=== PATIENT | male | born 1955 | race Caucasian/White ===

== ENCOUNTER → 2020-11-27 02:26 | Outpatient (CLI) | payer OTHER, SELFPAY ==
[2020-11-27 17:20] LABS: SARS-CoV-2 RNA PCR Negative
== END ==
PROVIDERS: Visit Provider Internal Medicine Gastroenterology
DX: Z01.812 Encounter for preprocedural laboratory examination (principal)
CPT/HCPCS: C9803; U0003; U0005

== ENCOUNTER 2020-11-30 00:39 | Day surgery (SDC) | payer OTHER, SELFPAY ==
[2020-11-16 09:35] VITALS: BMI 33.5
[2020-11-30 10:00] VITALS: BP 139/70; PULSE 88; RESP 20; TEMP 36.4; O2SAT 99; BMI 33.5
[2020-11-30 10:08] LABS: Glucose Point of Care 279 mg/dl (65-105)
[2020-11-30] MEDS: LACTATED RINGERS 1,000 ML 150 ML IV CONT (10:13)
--- NOTE | 2020-11-30 10:17 | WPDANESEPPF ---
Anes - Initial Pre Proc Eval Procedure: Operation Date: 11/30/20 10:30 Proposed Procedures p Screening Colonoscopy - Artie Shepard MD Date/Time: 11/30/20 10:17 Surgeon: Artie Shepard MD Pre Op Diagnosis: hx of colon polyps, neoplasm screening Patient Data Age: 65 Gender: M Height: 1.8 m Weight: 109.1 kg Last Vital Signs Temp 36.4 C 11/30/20 10:00 Pulse 88 11/30/20 10:00 Resp 20 11/30/20 10:00 BP 139/70 11/30/20 10:00 Pulse Ox 99 11/30/20 10:00 Allergies Allergy/AdvReac Type Severity Reaction Status Date / Time No Known Allergies Allergy Unverified 11/16/20 09:41 Home Medications Medication Instructions Recorded Confirmed Type sodium,potassium,mag sulfates 17.5 See Rx Instructions PO .COMPLEX 10/15/20 Rx gram-3.13 gram-1.6 gram oral soln #354 ml atorvastatin 20 mg PO DAILY 11/16/20 11/16/20 History diclofenac sodium 75 mg PO BID 11/16/20 11/16/20 History losartan-hydrochlorothiazide 1 tablet PO DAILY 11/16/20 11/16/20 History sitagliptin-metformin [Janumet] 1 tablet PO BID 11/16/20 11/16/20 History Laboratory Tests 11/30/20 10:06 POC Capillary Glucose 279 mg/dl H mg/dl (65-105) Patient hx anesthesia problems: none Family hx anesthesia problems: none PMFSH Past Medical History Medical History (Updated 11/30/20 @ 10:18 by Salty Lopez MD) Diabetes HTN (hypertension) Hyperlipidemia Surgical History Surgical History (Updated 11/30/20 @ 10:20 by Salty Lopez MD) H/O colonoscopy Social History Social History Smoking status: Never smoker Tobacco type: cigars Alcohol intake: current Drinks per week: 8 Alcohol use details: BEERS Substance use: never Substance use type: does not use Living arrangements: with family Spiritual care concerns: No Anes - Eval Final PreProcedure Day of Procedure 11/30/20 10:17 Patient weight: obese Heart: regular rate and rhythm Lungs: clear to auscultation Airway: Mallampati scale class II Neurological: alert and oriented Last oral intake: >/= 8 hours ASA classification: III Emergent: no Anesthetic plan: proceed Anesthesia type and monitoring: general GIVS and standard monitoring Informed Consent: The patient's anesthetic plan and its attendant risks and benefits were discussed with the patient/family/POA. Questions were solicited and answers provided to the satisfaction of the patient/family/POA.
--- NOTE | 2020-11-30 10:40 | PM.HPGS ---
History of Present Illness History of Present Illness Consent: Risks, benefits, and alternatives have been discussed and questions answered. Patient agrees to proceed with procedure. Chief complaint: hx of colon polyps, neoplasm screening Narrative: Anshu Mohamud is a 65 year old male with colon polyp ~ 6 years ago. Review of Systems Constitutional: Constitutional: Denies headache(s) and Denies weakness Eyes: Eyes: Denies blurry vision ENT: Reports Normal hearing present, Denies headache(s) and Denies neck pain Cardiovascular: Cardiovascular: Denies chest pain and Denies dyspnea Respiratory: Respiratory: Denies dyspnea Gastrointestinal: Gastrointestinal: Reports no additional gastrointestinal complaints Genitourinary: Genitourinary: Denies dysuria Musculoskeletal: Musculoskeletal: Denies neck pain Integumentary/Breasts: Skin/Breast: Denies dry skin Neurologic: Reports Normal hearing present, Denies headache(s) and Denies weakness Psychiatric: Psychiatric: Denies anxiety Endocrine: Endocrine: Denies change in body appearance Hematologic/Lymphatic: Hematologic/Lymphatic: Denies easy bleeding Allergic/Immunologic: Allergic/Immunologic: Denies urticaria PMFSH Past Medical History Medical History (Updated 11/30/20 @ 10:41 by Artie Shepard MD) Colon polyp Diabetes HTN (hypertension) Hyperlipidemia Surgical History Surgical History (Updated 11/30/20 @ 10:20 by Salty Lopez MD) H/O colonoscopy Social History Social History Smoking status: Never smoker Tobacco type: cigars Alcohol intake: current Drinks per week: 8 Alcohol use details: BEERS Substance use: never Substance use type: does not use Living arrangements: with family Spiritual care concerns: No Meds Home Medications and Allergies Home Medications Medication Instructions Recorded Confirmed Type sodium,potassium,mag sulfates 17.5 See Rx Instructions PO .COMPLEX 10/15/20 Rx gram-3.13 gram-1.6 gram oral soln #354 ml atorvastatin 20 mg PO DAILY 11/16/20 11/16/20 History diclofenac sodium 75 mg PO BID 11/16/20 11/16/20 History losartan-hydrochlorothiazide 1 tablet PO DAILY 11/16/20 11/16/20 History sitagliptin-metformin [Janumet] 1 tablet PO BID 11/16/20 11/16/20 History Allergies Allergy/AdvReac Type Severity Reaction Status Date / Time No Known Allergies Allergy Unverified 11/16/20 09:41 Vital Signs Vital Signs - 24 hr 11/30/20 10:00 Temperature 97.6 F Pulse Rate 88 Respiratory Rate 20 Blood Pressure 139/70 Pulse Oximetry 99 Exam Const: General: comfortable and no acute distress HENMT: General nose exam: Normal nares present Eyes: General: appearance normal, both eyes and all related structures Neck: Neck: no JVD Resp: Auscultation: clear to auscultation bilaterally Cardio: Rate: regular rate Rhythm: regular rhythm GI: Inspection: non-distended GI Palp: Yes Soft to palpation Skin: General skin exam: normal color Neuro: General: gait normal Speech: normal speech Extrem: General: normal to inspection Psych: Mental Status: mental status grossly normal Assessment and Plan Assessment and plan (1) Colon polyp: Code(s): K63.5 - Polyp of colon Status: Acute Assessment and Plan: colonoscopy
[2020-11-30 11:06] VITALS: BP 122/93; PULSE 80; RESP 26; O2SAT 99
[2020-11-30 11:16] VITALS: BP 142/74; PULSE 83; RESP 17; O2SAT 100
[2020-11-30 11:26] VITALS: BP 143/80; PULSE 86; RESP 19; O2SAT 99
== END 2020-11-30 11:34 | disposition home or self-care (01) ==
PROVIDERS: PCP Family Medicine Sports Medicine; Visit Provider Internal Medicine Gastroenterology
PROC: 0DJD8ZZ Inspection of Lower Intestinal Tract, Via Natural or Artificial Opening Endoscopic (ICD-10-PCS; CPT 45378; principal; 2020-11-30 10:30)
DX: Z12.11 Encounter for screening for malignant neoplasm of colon (principal); C19 Malignant neoplasm of rectosigmoid junction; D12.3 Benign neoplasm of transverse colon; K57.30 Diverticulosis of large intestine without perforation or abscess without bleeding; K64.8 Other hemorrhoids; E11.9 Type 2 diabetes mellitus without complications; I10 Essential (primary) hypertension; E78.5 Hyperlipidemia, unspecified; E66.9 Obesity, unspecified; Z68.33 Body mass index [BMI] 33.0-33.9, adult
CPT/HCPCS: 45380; 45381; 45385; 82948; 88305; C9803; J2704; J7120; U0003; U0005

== ENCOUNTER 2020-12-04 14:22 | Outpatient (CLI) | payer OTHER, SELFPAY ==
--- NOTE | ~2020-12-04 | CT_ITS ---
EXAMINATION: CT abdomen pelvis w con DATE: 12/04/2020 15:51 INDICATION: Rectosigmoid mass TECHNIQUE: Computed tomography (CT) of the abdomen and pelvis was performed with 100 mL Omnipaque-350 intravenous contrast. Automated exposure control and iterative reconstruction technique were employe d. The dose-length product was 1227.66 mGy-cm. COMPARISON: None FINDINGS: Calcified right middle lobe nodule along with multiple small splenic calcifications consistent with o ld granulomatous disease. Heart size is normal. Aortic valve calcification. No pericardial or pleural effusion. Liver, gallbladder, pancreas and bilateral adrenal glands are normal. 6.8 x 6.1 cm mixed s olid and cystic mass at the upper pole of the left kidney suspicious for renal cell carcinoma. There appears to be extension of the mass into a dilated draining left renal vein with small filling defect at its confluence with the left renal vein. 2.5 cm para pelvic cyst at the interpolar region of the left kidney. There is a heterotopic ossification associated with a region of cortical scarring at the upper pole of the left kidney. 2.2 cm exophytic cyst at the lower pole of the right kidney. There is mild colonic diverticulosis with a sigmoid predominance. There is no adjacent inflammatory change t o suggest diverticulitis. 1.8 cm macroscopic fat attenuation subserosal lipoma at the tip of the cecu m. No evident rectosigmoid mass appreciated. Small bowel and appendix are normal. Bladder is normal. No free intraperitoneal gas or fluid. No pathologically enlarged abdominal or pelvic lymphadenopathy. Moderate to severe thoracolumbar spondylosis. There are bridging osteophytes at multiple levels in t he lower thoracic spine, consistent with diffuse idiopathic skeletal hyperostosis (DISH). No suspicio us lytic or blastic bone lesions. IMPRESSION: 1. 6.8 x 6.1 cm mixed solid and cystic mass at the upper pole of the left kidney with apparent extens ion into a left renal vein which is concerning for renal cell carcinoma. 2. No evident rectosigmoid mass or metastatic disease. Reviewed, dictated and finalized at location A. IMPRESSION: 1. 6.8 x 6.1 cm mixed solid and cystic mass at the upper pole of the left kidne y with apparent extension into a left renal vein which is concerning for renal cell carcinoma. 2. No evident rectosigmoid mass or metastatic disease.
[2020-12-04 15:10] LABS: Hematocrit 42.3 % (42.0-52.0); Hemoglobin 14.2 g/dL (14.0-18.0); Mean Corpuscular HGB Conc 33.6 g/dl (32-36); Mean Corpuscular Hemoglobin 30.9 pg (26-34); Mean Platelet Volume 9.6 fl (7.4-10.4); Platelet Count Result 312 k/mm3 (150-375); Red Cell Distribution Width 12.4 % (11.5-14.5); White Blood Count 11.6 K/mm3 (4.5-10.0)
[2020-12-04 15:38] LABS: Estimated Glomerular Filt Rate 36
[2020-12-04 17:03] LABS: Alanine Aminotransferase 23 U/L (4-50); Albumin Level 4.8 g/dL (3.5-5.1); Alkaline Phosphatase 93 U/L (38-126); Anion Gap 10 mmol/L (8-16); Aspartate Amino Transferase 23 U/L (17-59); Bilirubin,Total 0.6 mg/dL (0.2-1.3); Blood Urea Nitrogen 19 mg/dL (9-20); Calcium 10.7 mg/dL (8.4-10.2); Carbon Dioxide 26 mmol/L (22-30); Chloride 99 mmol/L (98-107); Estimated Glomerular Filt Rate 40; Glucose 161 mg/dL (65-110); Sodium 135 mmol/L (137-145)
[2020-12-04 17:29] LABS: Carcinoembryonic Antigen 3.4 ng/mL (0.0-3.0)
== END 2020-12-04 14:23 | disposition home or self-care (01) ==
PROVIDERS: PCP Family Medicine Sports Medicine; Referring Provider Family Medicine Sports Medicine; Visit Provider Internal Medicine Gastroenterology
DX: K63.89 Other specified diseases of intestine (principal)
CPT/HCPCS: 36415; 74177; 80053; 82378; 85027; Q9967

== ENCOUNTER 2020-12-14 06:39 | Outpatient (CLI) | payer OTHER, SELFPAY ==
--- NOTE | ~2020-12-14 | MR_ITS ---
EXAMINATION: MR pelvis wo/w con DATE: 12/14/2020 08:10 INDICATION: Rectosigmoid cancer TECHNIQUE: Magnetic resonance imaging (MRI) of the pelvis was performed without and with 20 mL Multih ance intravenous contrast. Full-field sequences of the pelvis included axial and coronal T2-weighted SS FSE, coronal 2D FIESTA, axial T1-weighted FSPGR, axial dual-echo T1-weighted FSPGR and axial T1 we ighted LAVA. Small field of view sequences included axial, sagittal and coronal T2-weighted FSE cent ered on the uterus and adnexa. Postcontrast sequences included a coronal T1-weighted LAVA as well as a time course axial T1-weighted LAVA with full-field of view of the pelvis. COMPARISON: CT dated 12/04/2020 FINDINGS: There is a region of eccentric thickening of the submucosa along the anterior rectosigmoid junction c entered slightly to the left of midline. 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 There is no evident thickening or interruption of the low sig nal intensity muscularis propria to suggest macroscopic invasion although per pathology report there was suggestion of some microscopic smooth muscle invasion. The serosal surface appears smooth with no evident invasion of the mesorectum which is also without evident suspicious lymphadenopathy. No path ologically enlarged pelvic or inguinal lymphadenopathy. The visualized portions of the more proximal bowel are unremarkable including a normal appendix. Ther e is mild wall thickening at the dome of the bladder measuring up to 7 mm in thickness which appears relatively uniform with mild trabeculation of the bladder mucosa which could be related to chronic ou tlet obstruction or neurogenic bladder although the prostate remains within normal limits measuring 3 .5 x 3.0 x 3.6 cm. There is mild to moderate lower lumbar spondylosis. Normal bone marrow signal thr oughout with no abnormally enhancing bone lesions. IMPRESSION: 1. Small region of wall thickening at the left anterior rectosigmoid junction with thickening of the submucosal layer which could represent residual malignancy and/or inflammation related to reported bi opsied demonstrating colorectal adenocarcinoma. No evident macroscopic involvement of the muscularis propria, trans serosal invasion of the mesorectum or metastatic pelvic lymphadenopathy. 2. Relatively diffuse wall thickening at the dome of the bladder with mucosal trabeculation which sug gests sequela of chronic outlet obstruction or neurogenic bladder although the prostate remains withi n normal limits measuring 3.5 x 3.0 x 3.6 cm. Reviewed, dictated and finalized at location A. IMPRESSION: 1. Small region of wall thickening at the left anterior rectosigmoid junction w ith thickening of the submucosal layer which could represent residual malignanc y and/or inflammation related to reported biopsied demonstrating colorectal caroline nocarcinoma. No evident macroscopic involvement of the muscularis propria, espino s serosal invasion of the mesorectum or metastatic pelvic lymphadenopathy. 2. Relatively diffuse wall thickening at the dome of the bladder with mucosal t rabeculation which suggests sequela of chronic outlet obstruction or neurogenic bladder although the prostate remains within normal limits measuring 3.5 x 3.0 x 3.6 cm.
[2020-12-14 07:20] LABS: Estimated Glomerular Filt Rate 47
== END 2020-12-14 06:40 | disposition home or self-care (01) ==
PROVIDERS: PCP Family Medicine Sports Medicine; Visit Provider Internal Medicine Hematology & Oncology
DX: C19 Malignant neoplasm of rectosigmoid junction (principal); R93.41 Abnormal radiologic findings on diagnostic imaging of renal pelvis, ureter, or bladder
CPT/HCPCS: 72197; A9577

== ENCOUNTER 2020-12-24 08:13 | Outpatient (CLI) | payer OTHER, SELFPAY ==
--- NOTE | ~2020-12-24 | CT_ITS ---
EXAMINATION: CT diagnostic chest wo con DATE: 12/24/2020 09:54 INDICATION: Left renal mass TECHNIQUE: Computed tomography (CT) of the chest was performed without intravenous contrast. The dose -length product (DLP) was 555.93 mGy-cm. Automated exposure control and iterative reconstruction tech nique were employed. COMPARISON: None FINDINGS: The lungs are free of acute opacities. There is no pleural effusion or pneumothorax. Calcif ied pulmonary nodules and calcified mediastinal lymph nodes are consistent with old granulomatous dis ease. No pathologically enlarged thoracic lymph nodes are identified. The heart size is normal. Punct ate calcifications in an otherwise normal spleen likely represent healed granulomatous disease. There are bridging osteophytes at multiple levels in the spine, consistent with diffuse idiopathic skeleta l hyperostosis (DISH). There is a partially imaged left kidney mass described in detail on MRI examin ation from today. IMPRESSION: 1. No acute cardiopulmonary abnormality or evidence of thoracic metastatic disease. Reviewed, dictated and finalized at location A. IMPRESSION: 1. No acute cardiopulmonary abnormality or evidence of thoracic metastatic dise ase.
--- NOTE | ~2020-12-24 | MR_ITS ---
EXAMINATION: MR abdomen wo/w con INDICATION: Renal mass TECHNIQUE: Coronal SSFSE ARC, WATER:coronal LAVA-FLEX, Coronal 2D FIESTA FatSat, Axial SSFSE BH ARC, Axial 3D DualEcho BH, Axial SSFSE-IR, Axial DWI b=500, Axial 2D FIESTA FatSat, pre and dynamic postco ntrast Axial LAVA ARC, postcontrast Coronal In and Opposed phase LAVA FLEX COMPARISON: CT, 12/04/2020 CONTRAST: Multihance, 20 cc FINDINGS: The liver, spleen, pancreas, gallbladder, and adrenal glands are normal. There is cortical scarring in the right mid kidney demonstrated to be associated with calcification on the comparison C T. Cysts of the right kidney lower pole measure up to 2.4 cm. There are no pathologically enlarged ab dominal lymph nodes. No dilated loops of bowel are evident. There is a heterogeneous 7.1 x 6.5 x 5.5 cm mass involving the posterior aspect of the left kidney up per pole. The left renal vein bifurcates with an anterior division that drains the lower pole and the anterior aspect of the upper pole and a posterior division that drains the posterior aspect of the u pper pole. This posterior division is expanded and contains tumor thrombus. The tumor thrombus extend s into the main renal vein just proximal to the bifurcation. The tumor thrombus does not cross the mi dline and does not involve the inferior vena cava. IMPRESSION: 1. Right kidney mass consistent with renal cell carcinoma with tumor thrombus in the left renal vein as detailed above. Reviewed, dictated and finalized at location A. IMPRESSION: 1. Right kidney mass consistent with renal cell carcinoma with tumor thrombus i n the left renal vein as detailed above.
[2020-12-24 08:52] LABS: Estimated Glomerular Filt Rate 40
== END 2020-12-24 08:14 | disposition home or self-care (01) ==
PROVIDERS: PCP Family Medicine Sports Medicine; Visit Provider Urology
DX: N28.89 Other specified disorders of kidney and ureter (principal)
CPT/HCPCS: 71250; 74183; A9577

== ENCOUNTER 2021-03-29 07:56 | Outpatient (CLI) | payer OTHER, SELFPAY ==
[2021-03-29 09:28] LABS: Anion Gap 8 mmol/L (8-16); Blood Urea Nitrogen 36 mg/dL (9-20); Calcium 9.6 mg/dL (8.4-10.2); Carbon Dioxide 23 mmol/L (22-30); Chloride 99 mmol/L (98-107); Estimated Glomerular Filt Rate 22; Glucose 128 mg/dL (65-110); Potassium 5.1 mmol/L (3.4-5.0); Sodium 130 mmol/L (137-145)
== END 2021-03-29 07:57 | disposition home or self-care (01) ==
LOC: ANHSURGERY 08:03
PROVIDERS: Anesthesiology; PCP Family Medicine Sports Medicine; Visit Provider Surgery
DX: Z01.818 Encounter for other preprocedural examination (principal); E11.9 Type 2 diabetes mellitus without complications
CPT/HCPCS: 36415; 80048

== ENCOUNTER → 2021-04-03 00:05 | Outpatient (CLI) | payer OTHER, SELFPAY ==
[2021-04-03 17:30] LABS: SARS-CoV-2 RNA PCR Negative
== END ==
PROVIDERS: PCP Family Medicine Sports Medicine; Visit Provider Surgery
DX: Z01.812 Encounter for preprocedural laboratory examination (principal); Z20.822 Contact with and (suspected) exposure to COVID-19
CPT/HCPCS: C9803; U0003; U0005

== ENCOUNTER 2021-04-07 16:54 | Inpatient (IN) | payer MEDICARE, OTHER, SELFPAY ==
[2021-03-29 08:09] VITALS: BMI 32.6
--- NOTE | 2021-03-29 08:39 | PC.NURSE ---
Report to the Outpatient Waiting Room, entrance under the green pavilion located off [facility], at time __0800 on date __04/07/21 . OR Time: _1000 . - You and your visitor will be asked a series of questions to screen for COVID 19 for your protection. - A mask is required within the hospital. - Only one visitor is allowed at this time. Patient visitors will be guided where to wait when not with patient. Preoperative COVID Testing Requirements: No COVID Test needed if: (proof is required; if not received patient will have Rapid Test prior to entry) COVID TESTING 04/03/21 @0920 - Patient has received COVID Vaccine at least 14 days prior to procedure date or - Patient has positive COVID test result within last 90 days of surgery date. COVID Test needed if above criteria is not met If not COVID vaccinated a COVID test must be conducted within 72 hours of surgery and patient is asked to isolate self from time of testing until procedure. You will go to the [employer] [facility] for your COVID testing. The [employer] [facility] site is located at the corner of [address] [facility]. You will only be called if COVID results are positive and your surgeon may reschedule your elective surgery date. Patients may have clear liquids (water, carbonated beverages, clear teas, apple juice) until 3 hours prior to surgery with a maximum of 20 ounces. - No food from midnight until time of surgery - Infants may have breast milk until 4 hours before surgery, infant formula 6 hours prior to surgery. - Children will be allowed to drink immediately following surgery. If applicable, please bring a bottle or sippy cup to assist with drinking. Juice, water, soda, and popsicles are readily available. For infants on formula, please bring formula the day of surgery. Pacifiers are allowed. Take the following medications with a SIP of water the morning of surgery: ___NONE Medications to discontinue per physician NONE Date to take last dose Please no make-up, nail cape verdean, hairspray, perfume, deodorant, or body powder the day of surgery. No jewelry (including any body piercings) or valuables the day of surgery, leave them at home. Please take a shower or bath the night before, or the morning of, surgery with an antibacterial soap. Wear comfortable, loose fitting clothing. Children are encouraged to wear pajamas. - Jewelry must be removed prior to entering the operating room. Rings and piercings that are not removed may be cut off. - The hospital will not accept responsibility for valuables. - Please leave all valuables, including medications, at home the day of surgery. HIBICLENS SHOWER DAY BEFORE SURGERY AND MORNING OF SURGERY If you are going home after surgery, a licensed semi driver must drive you home. - NO public transportation without another adult. - We recommend that an adult stay with you for 24 hours following discharge. - We also recommend that you do not drive, make important decision, drink alcoholic beverages, or take any drugs that were not prescribed by your health care provider for at least 24 hours after your discharge time. For Pediatric surgeries, we recommend two adults accompany the child home (only one inside the building at this time). Follow any additional instructions given to you from your surgeon. verbal instructions given to _PATIENT AND PARISH and asked if any additional questions and then verbalized understanding. Patient advised to call surgeon office or pre surgery nurse liaison [phone] if any additional questions.
[2021-03-29 08:54] VITALS: BP 155/67; PULSE 75; RESP 16; TEMP 37.3; O2SAT 100; BMI 32.6
[2021-04-07] VITALS (12 sets, daily range): BP systolic 125–148; BP diastolic 61–82; PULSE 71–88; RESP 12–18; TEMP 36.1–36.6; O2SAT 97–100
[2021-04-07] MEDS: ACETAMINOPHEN 500 MG TABLET 1000 MG PO ×2 (08:19→18:02)
[2021-04-07] MEDS: KETOROLAC 15 MG/ML VIAL (*BKC) IV PUSH (08:47)
[2021-04-07 08:51] LABS: Glucose Point of Care 177 mg/dl (65-105)
[2021-04-07 09:03] LABS: Sodium 131 mmol/L (137-145)
[2021-04-07] MEDS: LACTATED RINGERS 1,000 ML 30 ML IV CONT ×2 (09:39→15:13)
--- NOTE | 2021-04-07 10:22 | WPDHPUPDATE1 ---
History and Physical Update Update Date/Time: 04/07/21 10:22 History and Physical has been reviewed, including an updated exam of the patient. There are NO changes in the patient's condition. Risks, benefits, and alternatives have been discussed and questions answered. Patient agrees to proceed with procedure.
--- NOTE | 2021-04-07 10:23 | WPDANESEPPF ---
Anes - Initial Pre Proc Eval Procedure: Operation Date: 04/07/21 10:00 Proposed Procedures p Hand Assisted Laparoscopic Low Anterior Resection, Possible Open - Jesse Shaffer DO Date/Time: 04/07/21 10:23 Surgeon: Jesse Shaffer DO Pre Op Diagnosis: rectosigmoid colon cancer Patient Data Age: 65 Gender: M Height: 1.8 m Weight: 102.8 kg Last Vital Signs Temp 97.7 F 04/07/21 08:27 Pulse 81 04/07/21 08:27 Resp 16 04/07/21 08:27 BP 141/71 H 04/07/21 08:27 Pulse Ox 100 04/07/21 08:27 Allergies Allergy/AdvReac Type Severity Reaction Status Date / Time No Known Allergies Allergy Verified 04/07/21 08:17 Home Medications Medication Instructions Recorded Confirmed Type atorvastatin 20 mg PO DAILY 11/16/20 04/07/21 History losartan-hydrochlorothiazide 1 tablet PO DAILY 11/16/20 04/07/21 History sitagliptin-metformin [Janumet] 1 tablet PO BID 11/16/20 04/07/21 History aspirin 81 mg PO HS 12/17/20 04/07/21 History erythromycin 500 mg tablet See Rx Instructions .ROUTE 03/09/21 03/29/21 Rx .COMPLEX #6 tablet neomycin 500 mg tablet See Rx Instructions .ROUTE 03/09/21 03/29/21 Rx .COMPLEX #6 tablet diclofenac-misoprostol 1 tablet PO BID 03/29/21 04/07/21 History Laboratory Tests 04/07/21 04/07/21 08:40 08:43 Sodium 131 mmol/L L mmol/L (137-145) POC Capillary Glucose 177 mg/dl H mg/dl (65-105) Patient hx anesthesia problems: none Family hx anesthesia problems: none Results Review: All pre-operative results and documents have been reviewed as part of the pre-operative evaluation. 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 Informed Consent: The patient's anesthetic plan and its attendant risks and benefits were discussed with the patient/family/POA. Questions were solicited and answers provided to the satisfaction of the patient/family/POA.
[2021-04-07] MEDS: metroNIDAZOLE 500 MG/ISO 100ML 500 MG/100 ML BAG 100 MG IVPB (11:18)
[2021-04-07] MEDS: ceFAZolin 2 GM/D5W 50 ML 2 GM/50 ML BAG IVPB (11:22)
--- NOTE | 2021-04-07 14:11 | SUR.OPER ---
ICG (2.5MG/ML) GIVEN PER ANESTHESIA INTRAOP/SEE ANESTHESIA RECORD FOR IV DOSE AND TIME.
--- NOTE | 2021-04-07 15:12 | W.PM.PROC2 ---
Procedure Note - Detailed Date of Procedure 04/07/21 Pre-op Diagnosis Rectal Cancer Post-op Diagnosis same Procedure Performed Hand assisted laparoscopic low anterior resection with low pelvic anastomosis Surgeon Jesse Sahffer DO Material Stress Tester Marcelo Glez MD Anesthesia general and local (Exparel) Indications This is a 65-year-old man who presented with a recent finding of recto sigmoid cancer on colonoscopy. He has a prior history of colon polyps and underwent colonoscopy 11/30/2020. A mass the rectosigmoid region was identified and biopsied and tattooed. Biopsies confirmed adenocarcinoma. He had further workup including a CT and lab work. CEA level was 3.[address] showed no evidence of metastatic spread, but this did show evidence of a left kidney mass. He then had to undergo left nephrectomy prior to proceeding with colon resection. He was referred to Radiation Oncology for possible neoadjuvant radiation, but MRI showed no deep invasion of the rectal cancer. He then followed up after undergoing nephrectomy and further discussions were made with the patient and decision was made to proceed with hand assisted laparoscopic low anterior resection. Findings Hand assisted laparoscopic low anterior resection was performed. The tattooed region was identified beyond the peritoneal reflection and the more distal rectum. This did not appear to be near the rectosigmoid junction like was 1st reported. A high ligation of the inferior mesenteric artery was performed and further deep pelvic dissection was performed to mobilize the rectum perform a total mesorectal excision. I was able to get just beyond the distal tattoo and identify healthy appearing rectum for the resection and anastomosis. There was about 5 cm of rectum distal to the transection point. A 31 mm EEA stapler was chosen to perform the anastomosis. Leak check was negative for evidence of air bubbles. Indocyanine green was also used to verify adequate perfusion to the colon coming down to the rectum and adequate perfusion to the rectal stump. Description of Procedure Procedure as well as risks benefits and alternatives were explained to the patient. Written consent was obtained and placed in chart prior to procedure. Patient was brought back to surgical suite. He was placed supine on operating table. Time-out was done to confirm patient procedure. He was then intubated by the anesthesia department. He was re-positioned to modified lithotomy position. His abdomen was prepped and draped in sterile fashion using chlorhexidine prep. His rectum was irrigated with Betadine and his perirectal area was prepped and draped in sterile fashion using Betadine prep. A 7 centimeter vertical incision was made inferior to the umbilicus using a 15 blade scalpel. Electrocautery was used for hemostasis and for dissection down through Gissell's fascia. The linea alba was then incised using electrocautery. The peritoneum was bluntly entered using a curved hemostats. A carefully inspected the abdomen through the small hand port incision, and then placed the wound protector at this incision followed by the gel port with a 5 millimeter trocar placed through it. Carbon dioxide insufflation was then used to create a pneumoperitoneum. The abdomen was inspected, and no significant abnormalities were identified. The patient was then placed in steep Trendelenburg position and rotated to the right. Exparel was infiltrated bilaterally along the abdominal wall to perform a transversus abdominis plane block. A 5 millimeter incision was made in the suprapubic region and in the right upper quadrant and 5 millimeter ports were placed under direct visualization. A 12 millimeter incision was made in the right lower quadrant, and a 12 millimeter port was placed under direct visualization. I placed my left hand through the GelPort and carefully inspected the colon. The sigmoid colon was retracted anteriorly to tent up the inferior
[2021-04-07] MEDS: fentaNYL CITRATE INJ (*CRX) 100 MCG/2 ML VIAL 25 MCG IV PUSH ×8 (15:50→16:25)
[2021-04-07 16:14] LABS: Glucose Point of Care 131 mg/dl (65-105)
--- NOTE | 2021-04-07 16:28 | SUR.PHASEI ---
PT AWAKE AND ALERT. TALKATIVE. STATES PAIN MODERATE AND TOLERABLE AT 6/10.
--- NOTE | 2021-04-07 17:05 | ADMGEN ---
This patient, Anshu Mohamud, was admitted to 2 Medical Room 259-01. Patient/family oriented to hospital policies and general routines including ID bracelet, bed and alarms, visiting hours, pain management, procedures, bathroom and other care routines, personal items, smoking policy, room service/diet, and visiting hours. Information on how to activate the Rapid Response Team has been discussed. Patient/Family are encouraged to report perceived risks to care and to ask questions if they do not understand what they are told or what they should do.
[2021-04-07] MEDS: MORPHINE SULFATE (*CRX) 4 MG/ML INJ IV PUSH (18:00)
[2021-04-07] MEDS: LACTATED RINGERS 1,000 ML 100 ML IV CONT (18:02)
[2021-04-07 18:11] LABS: Glucose Point of Care 133 mg/dl (65-105)
[2021-04-07] MEDS: ASPIRIN 81 MG CHEWABLE TABLET PO (20:36)
[2021-04-07] MEDS: MORPHINE SULFATE (*CRX) 2 MG/ML INJ IV PUSH (20:39)
[2021-04-07 22:12] LABS: Glucose Point of Care 207 mg/dl (65-105)
[2021-04-08] VITALS (7 sets, daily range): BP systolic 141–157; BP diastolic 76–81; PULSE 76–98; RESP 16–20; TEMP 36.4–37.1; O2SAT 97–100
[2021-04-08] MEDS: ACETAMINOPHEN 500 MG TABLET 1000 MG PO ×4 (00:03→17:06)
[2021-04-08] MEDS: LIDOCAINE HCL 2% GEL UROJET 10 ML PKG MUCOUS MEM (01:37)
[2021-04-08] MEDS: LACTATED RINGERS 1,000 ML 100 ML IV CONT (04:02)
[2021-04-08 05:38] LABS: Basophils Absolute Auto 0.1 K/mm3 (0.0-0.1); Basophils Percent Auto 0.9 % (0.2-1.2); Eosinophils Absolute Auto 0.3 K/mm3 (0-0.3); Eosinophils Percent Auto 2.8 % (0-4.4); Hematocrit 31.6 % (42.0-52.0); Hemoglobin 10.5 g/dL (14.0-18.0); Immature Granulocyte Absolute 0.06 K/mm3 (0.00-0.031); Immature Granulocyte Percent A 0.5 % (0-0.5); Lymphocytes Absolute Auto 2.11 K/mm3 (0.9-3.2); Lymphocytes Percent Auto 18.2 % (18.3-44.2); Mean Corpuscular HGB Conc 33.2 g/dl (32-36); Mean Corpuscular Hemoglobin 31.3 pg (26-34); Mean Corpuscular Volume 94.3 fl (80-100); Mean Platelet Volume 9.1 fl (7.4-10.4); Monocytes Absolute Auto 0.8 K/mm3 (0.1-0.6); Neutrophils Absolute Auto 8.2 K/mm3 (1.3-6.7); Neutrophils Percent Auto 70.6 % (45.5-73.1); Platelet Count Result 283 k/mm3 (150-375); Red Blood Count 3.35 M/mm3 (4.6-6.20); Red Cell Distribution Width 14.2 % (11.5-14.5); White Blood Count 11.6 K/mm3 (4.5-10.0)
[2021-04-08 05:52] LABS: Anion Gap 8 mmol/L (8-16); Blood Urea Nitrogen 23 mg/dL (9-20); Calcium 9.3 mg/dL (8.4-10.2); Carbon Dioxide 25 mmol/L (22-30); Chloride 98 mmol/L (98-107); Estimated CRCL calculation 32 ml/min; Estimated Glomerular Filt Rate 26; Glucose 135 mg/dL (65-110); Potassium 4.4 mmol/L (3.4-5.0); Sodium 131 mmol/L (137-145)
[2021-04-08 07:51] LABS: Glucose Point of Care 123 mg/dl (65-105)
[2021-04-08] MEDS: ATORVASTATIN 20 MG TABLET PO (08:28)
[2021-04-08] MEDS: hydroCHLOROthiazide 25 MG TABLET PO (08:28)
[2021-04-08] MEDS: LOSARTAN POTASSIUM 100 MG TABLET PO (08:28)
[2021-04-08] MEDS: ENOXAPARIN 40 MG/0.4 ML SYRINGE SUB-Q (08:28)
--- NOTE | 2021-04-08 10:45 | PM.PNGS ---
Progress Note: A&P Assessment and Plan (1) Rectal cancer: Code(s): C20 - Malignant neoplasm of rectum Status: Acute Assessment and Plan: Continue clear liquids today. Stop IV fluids. Await return of bowel function. Increase activity. Pathology pending Subjective Subjective Date/Time Seen: 04/08/21 10:45 Interval history: Pain control. No flatus or BM yet. Had to be straight cath once overnight, but urinating without difficulty now. Main complaint is some throat discomfort from endotracheal tube. Exam GI: Inspection: non-distended and incision (Intact with glue) GI Palp: Yes Soft to palpation, Yes Tenderness to palpation present (GI) (Incisional) and No Guarding due to palpation present (GI) Auscultation: normal bowel sounds Objective Data Vital Signs Vital Signs: Vital Signs - 24 hr 04/07/21 15:13 04/07/21 15:30 04/07/21 15:45 Temperature 36.6 C Pulse Rate 88 72 75 Respiratory Rate 12 14 14 Blood Pressure 136/64 130/71 125/61 Pulse Oximetry 100 100 99 04/07/21 16:00 04/07/21 16:15 04/07/21 16:30 Temperature Pulse Rate 75 77 74 Respiratory Rate 14 16 14 Blood Pressure 140/67 136/74 140/68 Pulse Oximetry 98 99 100 04/07/21 17:10 04/07/21 17:40 04/07/21 18:10 Temperature 36.1 C L 36.2 C L 36.2 C L Pulse Rate 77 71 71 Respiratory Rate 16 16 14 Blood Pressure 148/70 H 141/65 H 133/64 Pulse Oximetry 100 100 100 04/07/21 20:00 04/07/21 20:21 04/08/21 01:27 Temperature 36.5 C 36.6 C Pulse Rate 84 83 Respiratory Rate 18 18 Blood Pressure 129/82 149/81 H Pulse Oximetry 100 97 100 04/08/21 05:52 04/08/21 10:10 Temperature 36.7 C 36.4 C L Pulse Rate 98 89 Respiratory Rate 16 18 Blood Pressure 145/81 H 145/79 H Pulse Oximetry 100 100 Intake/Output Intake/Output: Intake & Output 04/05/21 04/06/21 04/07/21 04/08/21 23:59 23:59 23:59 23:59 Intake Total 1460 1690 Output Total 1575 Balance 1460 115 Meds/Results Medications: Active Medications Generic Name Dose Route Start Last Admin Trade Name Freq PRN Reason Stop Dose Admin Acetaminophen 1,000 mg 04/07/21 18:00 04/08/21 06:17 Acetaminophen 500 Mg Tablet PO 1,000 mg Q6HR GABY Administration Aspirin 81 mg 04/07/21 21:00 04/07/21 20:36 Aspirin 81 Mg Chewable Tablet PO 81 mg HS GABY Administration Atorvastatin Calcium 20 mg 04/08/21 09:00 04/08/21 08:28 Atorvastatin 20 Mg Tablet PO 20 mg DAILY GABY Administration Dextrose 12.5 gm 04/07/21 16:54 Dextrose 50% 25 Gm/50 Ml Syringe IV PUSH PRN PRN Hypoglycemia Protocol Enoxaparin Sodium 40 mg 04/08/21 09:00 04/08/21 08:28 Enoxaparin 40 Mg/0.4 Ml Syringe SUB-Q 40 mg DAILY GABY Administration Glucagon 1 mg 04/07/21 16:54 Glucagon For Inj 1 Mg Vial IM PRN PRN Hypoglycemia Protocol Glucose 15 gm 04/07/21 16:54 Glucose Oral Gel 15 Gm Of Glucse In 37.5 Gm Tube PO PRN PRN Hypoglycemia Protocol Hydrochlorothiazide 25 mg 04/08/21 09:00 04/08/21 08:28 Hydrochlorothiazide 25 Mg Tablet PO 25 mg QAM GABY Administration Dextrose 1,000 mls @ 100 mls/hr 04/07/21 16:54 Dextrose 5% 1,000 Ml IVPB PRN PRN Hypoglycemia Protocol Insulin Aspart 3 - 6 units 04/07/21 17:00 04/08/21 08:26 Insulin Aspart (*Bkc) 100 Units/Ml SUB-Q Not Given TIDWM [facility] Protocol Losartan Potassium 100 mg 04/08/21 09:00 04/08/21 08:28 Losartan Potassium 100 Mg Tablet PO 100 mg DAILY GABY Administration Morphine Sulfate 2 mg 04/07/21 16:54 04/07/21 20:39 Morphine Sulfate (*Crx) 2 Mg/Ml Inj IV PUSH 2 mg Q2H PRN Administration Pain Rated 4-6 Morphine Sulfate 4 mg 04/07/21 16:54 04/07/21 18:00 Morphine Sulfate (*Crx) 4 Mg/Ml Inj IV PUSH 4 mg Q2H PRN Administration Pain Rated 7-10 Ondansetron HCl 4 mg 04/07/21 16:54 Ondansetron Inj 4 Mg/2 Ml Vial IV PUSH Q4H PRN Nausea And Vomiting
[2021-04-08 11:48] LABS: Glucose Point of Care 147 mg/dl (65-105)
--- NOTE | 2021-04-08 12:34 | WPDANESPN ---
Anes - Prog Note Post-Op Date/Time: 04/08/21 12:34 Cardiovascular status: normal Respiratory status: normal Airway patency: baseline Mental status: baseline Post-Op hydration status: normal Vital Signs: Last Vital Signs Temp 36.4 C L 04/08/21 10:10 Pulse 89 04/08/21 10:10 Resp 18 04/08/21 10:10 BP 145/79 H 04/08/21 10:10 Pulse Ox 100 04/08/21 10:10 Pain Score (VAS): 0 I/O: Intake & Output 04/07/21 04/08/21 04/08/21 23:59 07:59 15:59 Intake Total 1310 1450 600 Output Total 1575 Balance 1310 -125 600 Laboratory Tests 04/08/21 05:26 04/08/21 05:26 04/07/21 04/07/21 04/07/21 16:11 17:58 21:47 WBC RBC Hgb Hct MCV MCH MCHC RDW Plt Count MPV Immature Gran % (Auto) Neut % (Auto) Lymph % (Auto) [place] % (Auto) Eos % (Auto) Baso % (Auto) Lymph # (Auto) [place] # (Auto) Eos # (Auto) Baso # (Auto) Abs Immat Gran (auto) Absolute Neuts (auto) Absolute Nucleated RBC Nucleated RBC % Sodium Potassium Chloride Carbon Dioxide Anion Gap BUN Creatinine Estim Creat Clear Calc Estimated GFR Glucose POC Capillary Glucose 131 H 133 H 207 H Calcium 04/08/21 04/08/21 04/08/21 05:26 05:26 07:45 WBC 11.6 H RBC 3.35 L Hgb 10.5 L D Hct 31.6 L MCV 94.3 MCH 31.3 MCHC 33.2 RDW 14.2 Plt Count 283 MPV 9.1 Immature Gran % (Auto) 0.5 Neut % (Auto) 70.6 Lymph % (Auto) 18.2 L [place] % (Auto) 7.0 Eos % (Auto) 2.8 Baso % (Auto) 0.9 Lymph # (Auto) 2.11 [place] # (Auto) 0.8 H Eos # (Auto) 0.3 Baso # (Auto) 0.1 Abs Immat Gran (auto) 0.06 H Absolute Neuts (auto) 8.2 H Absolute Nucleated RBC 0.0 Nucleated RBC % 0.0 Sodium 131 L Potassium 4.4 Chloride 98 Carbon Dioxide 25 Anion Gap 8 BUN 23 H D Creatinine 2.50 H Estim Creat Clear Calc 32 Estimated GFR 26 L Glucose 135 H POC Capillary Glucose 123 H Calcium 9.3 04/08/21 11:41 WBC RBC Hgb Hct MCV MCH MCHC RDW Plt Count MPV Immature Gran % (Auto) Neut % (Auto) Lymph % (Auto) [place] % (Auto) Eos % (Auto) Baso % (Auto) Lymph # (Auto) [place] # (Auto) Eos # (Auto) Baso # (Auto) Abs Immat Gran (auto) Absolute Neuts (auto) Absolute Nucleated RBC Nucleated RBC % Sodium Potassium Chloride Carbon Dioxide Anion Gap BUN Creatinine Estim Creat Clear Calc Estimated GFR Glucose POC Capillary Glucose 147 H Calcium Post-procedural complaints: none Patient Feedback: Patient satisfied with anesthetic care.
[2021-04-08 16:35] LABS: Glucose Point of Care 119 mg/dl (65-105)
[2021-04-08] MEDS: ASPIRIN 81 MG CHEWABLE TABLET PO (20:24)
[2021-04-08 21:36] LABS: Glucose Point of Care 136 mg/dl (65-105)
[2021-04-09] MEDS: ACETAMINOPHEN 500 MG TABLET 1000 MG PO ×3 (00:22→11:32)
[2021-04-09 05:14] LABS: Hemoglobin 10.4 g/dL (14.0-18.0); Mean Corpuscular HGB Conc 33.5 g/dl (32-36); Mean Corpuscular Volume 92.3 fl (80-100); Mean Platelet Volume 9.5 fl (7.4-10.4); Platelet Count Result 312 k/mm3 (150-375); Red Blood Count 3.36 M/mm3 (4.6-6.20); Red Cell Distribution Width 14.1 % (11.5-14.5); White Blood Count 8.6 K/mm3 (4.5-10.0)
[2021-04-09 05:24] VITALS: BP 160/69; PULSE 72; RESP 18; TEMP 36.5; O2SAT 100
[2021-04-09 05:33] LABS: Anion Gap 7 mmol/L (8-16); Blood Urea Nitrogen 20 mg/dL (9-20); Calcium 10.2 mg/dL (8.4-10.2); Carbon Dioxide 24 mmol/L (22-30); Chloride 100 mmol/L (98-107); Estimated CRCL calculation 37 ml/min; Estimated Glomerular Filt Rate 30; Glucose 136 mg/dL (65-110); Potassium 4.6 mmol/L (3.4-5.0); Sodium 131 mmol/L (137-145)
[2021-04-09 07:40] LABS: Glucose Point of Care 139 mg/dl (65-105)
[2021-04-09] MEDS: ATORVASTATIN 20 MG TABLET PO (08:40)
[2021-04-09] MEDS: ENOXAPARIN 40 MG/0.4 ML SYRINGE SUB-Q (08:40)
[2021-04-09] MEDS: metFORMIN HCL 500 MG TABLET 1000 MG PO ×2 (08:40→16:19)
[2021-04-09] MEDS: hydroCHLOROthiazide 25 MG TABLET PO (08:41)
[2021-04-09] MEDS: LOSARTAN POTASSIUM 100 MG TABLET PO (08:41)
[2021-04-09 10:00] VITALS: BP 151/76; PULSE 72; RESP 12; TEMP 36.6; O2SAT 100
[2021-04-09 11:36] LABS: Glucose Point of Care 120 mg/dl (65-105)
[2021-04-09 14:40] VITALS: BP 153/77; PULSE 84; RESP 18; TEMP 36.9; O2SAT 99
[2021-04-09 16:23] LABS: Glucose Point of Care 90 mg/dl (65-105)
--- NOTE | 2021-04-09 16:34 | PM.DS ---
DS: Admitting Diagnosis Discharge Date 04/09/2021 Admitting Diagnosis rectal cancer, hypertension, type 2 diabetes, left renal carcinoma DS: Discharge Diagnosis Discharge Diagnosis (1) Rectal cancer: Code(s): C20 - Malignant neoplasm of rectum Status: Acute (2) HTN (hypertension): Qualifiers: Hypertension type: primary hypertension Qualified Code(s): I10 - Essential (primary) hypertension Code(s): I10 - Essential (primary) hypertension Status: Acute (3) Diabetes: Qualifiers: Diabetes mellitus type: type 2 Diabetes mellitus alf insulin use: without alf use Diabetes mellitus complication status: without complication Qualified Code(s): E11.9 - Type 2 diabetes mellitus without complications Code(s): E11.9 - Type 2 diabetes mellitus without complications Status: Acute (4) Renal cell carcinoma: Qualifiers: Laterality: left Qualified Code(s): C64.2 - Malignant neoplasm of left kidney, except renal pelvis Code(s): C64.9 - Malignant neoplasm of unspecified kidney, except renal pelvis Status: Acute DS: Summary Hospital Course Reason for hospitalization: rectal cancer Hospital Course: this is a 65-year-old man who presented for low anterior resection for rectal cancer. He had undergone colonoscopy on 11/30/2020 and a rectal mass was identified and biopsied. This area was also tattooed. Biopsy showed evidence of adenocarcinoma. He was then referred to Radiation Oncology and CT of his chest /abdomen / pelvis and MRI of pelvis was performed. Workup showed evidence of clinical stage I rectal cancer. CEA level was 3.4. His imaging did however also show evidence of likely stage III left renal cell carcinoma. He was then sent for further evaluation of this and underwent robotic left nephrectomy at [facility] in [facility] by Dr. Sami Medel. He then followed up for further surgical discussions about the rectal cancer in decision was made to proceed with hand assisted laparoscopic low anterior resection. This was performed on 04/07/2021. He was then admitted to the surgical floor postoperatively. He was initially started on a clear liquid diet and IV pain medications. On postop day 1 he was doing well but was still having some pain and had not passed flatus yet. He was continued on clear liquid diet on postop day 1. On postop day 2 he was advanced to full liquid diet and his bowels were moving. His pain control was much improved and he was ambulating in the halls. Was then advanced to a soft regular diet in the afternoon on postop day 2. He was tolerating this for dinner and was remaining hemodynamically stable. He was discharged on 04/09/2021. Pathology is still pending at the time of discharge. Status at Discharge Functional status at discharge: independent ambulation Overall status at discharge: patient is progressing back to baseline Time Spent with Patient Time attestation: Total time spent providing and/or coordinating discharge services: Time spent: Less than 30 minutes Exam Const: General: cooperative and no acute distress Orientation/consciousness: patient oriented x3 Resp: Effort & Inspection: normal respiratory effort Auscultation: clear to auscultation bilaterally Cardio: Rate: regular rate Rhythm: regular rhythm Heart sounds: S1 normal heart sound present and S2 normal heart sound present GI: Inspection: non-distended and incision ( Intact with glue) GI Palp: Yes Soft to palpation, Yes Tenderness to palpation present (GI) ( incisional) and No Guarding due to palpation present (GI) Percussion: Yes normal to percussion Auscultation: normal bowel sounds DS: Data Data Completed and Pending Pending studies at discharge: Pending at discharge 04/07/21 13:59 Surgical [PTH] Routine Labs on day of discharge: Labs from last 24 hours 04/09/21 04/09/21 04/09/21 16:18 11:30 07:34
== END 2021-04-09 17:42 | disposition home or self-care (01) | DRG 330 ==
LOC: ANH2MED 16:58
PROVIDERS: Anesthesiology; Admitting Provider Surgery; PCP Family Medicine Sports Medicine; Visit Provider Surgery
PROC: 0D1E4Z4 Bypass Large Intestine to Cutaneous, Percutaneous Endoscopic Approach (ICD-10-PCS; principal; 2021-04-07 10:00)
DX: C20 Malignant neoplasm of rectum (principal); C64.2 Malignant neoplasm of left kidney, except renal pelvis; F17.290 Nicotine dependence, other tobacco product, uncomplicated; E11.9 Type 2 diabetes mellitus without complications; E78.5 Hyperlipidemia, unspecified; I10 Essential (primary) hypertension; Z86.010 Personal history of colon polyps; Z90.5 Acquired absence of kidney; Z79.899 Other long term (current) drug therapy
CPT/HCPCS: 36415; 80048; 82948; 84295; 85025; 85027; 88305; 88309; A9270; C1729; C9290; J0330; J0690; J1650; J1885; J1940; J2250; J2270; J2405; J2704; J3010; J7030; J7120

== ENCOUNTER 2021-04-23 09:57 | Outpatient (CLI) | payer OTHER, SELFPAY ==
[2021-04-23 10:29] LABS: Basophils Absolute Auto 0.1 K/mm3 (0.0-0.1); Basophils Percent Auto 0.8 % (0.2-1.2); Eosinophils Absolute Auto 0.2 K/mm3 (0-0.3); Eosinophils Percent Auto 1.3 % (0-4.4); Hematocrit 34.8 % (42.0-52.0); Hemoglobin 11.9 g/dL (14.0-18.0); Immature Granulocyte Absolute 0.15 K/mm3 (0.00-0.031); Immature Granulocyte Percent A 1.1 % (0-0.5); Lymphocytes Absolute Auto 2.22 K/mm3 (0.9-3.2); Lymphocytes Percent Auto 16.4 % (18.3-44.2); Mean Corpuscular HGB Conc 34.2 g/dl (32-36); Mean Corpuscular Hemoglobin 30.6 pg (26-34); Mean Corpuscular Volume 89.5 fl (80-100); Mean Platelet Volume 8.3 fl (7.4-10.4); Monocytes Absolute Auto 1.3 K/mm3 (0.1-0.6); Monocytes Percent Auto 9.6 % (2.6-8.5); Neutrophils Absolute Auto 9.6 K/mm3 (1.3-6.7); Neutrophils Percent Auto 70.8 % (45.5-73.1); Platelet Count Result 723 k/mm3 (150-375); Red Blood Count 3.89 M/mm3 (4.6-6.20); Red Cell Distribution Width 13.2 % (11.5-14.5); White Blood Count 13.6 K/mm3 (4.5-10.0)
[2021-04-23 14:23] LABS: Anion Gap 17 mmol/L (8-16); Blood Urea Nitrogen 37 mg/dL (9-20); Calcium 9.9 mg/dL (8.4-10.2); Carbon Dioxide 19 mmol/L (22-30); Chloride 88 mmol/L (98-107); Estimated Glomerular Filt Rate 24; Glucose 180 mg/dL (65-110); Potassium 4.6 mmol/L (3.4-5.0); Sodium 124 mmol/L (137-145)
== END 2021-04-23 09:58 | disposition home or self-care (01) ==
LOC: ANHLAB 09:59
PROVIDERS: PCP Family Medicine Sports Medicine; Visit Provider Surgery
DX: C20 Malignant neoplasm of rectum (principal)
CPT/HCPCS: 36415; 80048; 85025

== ENCOUNTER 2021-12-21 09:38 | Outpatient (CLI) | payer MEDICARE, OTHER, SELFPAY ==
--- NOTE | ~2021-12-21 | CT_ITS ---
EXAMINATION: CT chest abdomen pelvis wo con DATE: 12/21/2021 10:02 INDICATION: Status post left nephrectomy for renal cancer. Status post colon resection for colon canc er. Restaging. TECHNIQUE: Computed tomography (CT) of the chest, abdomen, and pelvis was performed without intraveno us contrast. Automated exposure control and iterative reconstruction technique were employed. Exam do se: 1383.63 mGy-cm total exam DLP. COMPARISON: 12/24/2020 CT chest 12/24/2020 MRI abdomen 12/14/2020 MRI pelvis 12/04/2020 CT abdomen pelvis FINDINGS: CHEST CT: The lungs are clear of infiltrate or consolidation or pulmonary mass lesion. Normal heart size. Coronary artery calcification. No thoracic aortic aneurysm. No pericardial or pleu ral effusion. No hilar or mediastinal mass lesion or lymphadenopathy. ABDOMEN/PELVIS CT: The liver, gallbladder, bile ducts, pancreas and pancreatic duct are unremarkable. Normal splenic siz e. Multiple calcified splenic granulomas and a hepatic calcified granuloma, consistent with old granu lomatous disease. Normal morphology of the right adrenal gland. Prominent scarring and prominent dystrophic calcification of the upper pole of the right kidney. Approximately 2.5 mm nonobstructing right renal calculus. No right ureteral calculus or hydroureteron ephrosis. Status post left nephrectomy. No abnormal mass lesion is noted in the left nephrectomy bed. There is a suture line at the rectosigmoid area. There is presacral soft tissue thickening and gas, not present on 12/04/2020., The soft tissue thicken ing measures up to 4 cm transverse 3 to 4 cm AP dimension. There is no underlying sacral bone destruc tion. This may be postoperative or possibly post-radiation change with bowel fistula, versus less lik glenny possibility of recurrent neoplasm. Consider PET/CT imaging for further evaluation. Normal caliber of the abdominal aorta. No intraperitoneal or retroperitoneal or pelvic mass lesion or adenopathy or ascites is noted otherwise. Prominent degenerative disc disease in the lower cervical spine. Diffuse idiopathic skeletal hyperostosis of the thoracic spine. Multilevel degenerative disc disease of the lumbar spine, particularly severe at L2-3. IMPRESSION: Status post left nephrectomy; no evidence of tumor recurrence in the left nephrectomy be d Status post rectosigmoid resection; there is presacral soft tissue thickening and gas; diffusion diag nosis includes postoperative or post-radiation scarring and fistula formation versus recurrent neopla sm; consider PET/CT imaging Prominent scarring and dystrophic calcification at upper pole right kidney Small nonobstructing right renal calculus Extensive degenerative changes of cervical, thoracic and lumbar spine Reviewed, dictated and finalized at [facility]. Reviewed, dictated and finalized at [facility]. IMPRESSION: Status post left nephrectomy; no evidence of tumor recurrence in t he left nephrectomy bed Status post rectosigmoid resection; there is presacral soft tissue thickening a nd gas; diffusion diagnosis includes postoperative or post-radiation scarring a nd fistula formation versus recurrent neoplasm; consider PET/CT imaging Prominent scarring and dystrophic calcification at upper pole right kidney Small nonobstructing right renal calculus Extensive degenerative changes of cervical, thoracic and lumbar spine
[2021-12-21 10:46] LABS: Basophils Absolute Auto 0.1 K/mm3 (0.0-0.1); Basophils Percent Auto 0.8 % (0.2-1.2); Eosinophils Absolute Auto 0.4 K/mm3 (0-0.3); Eosinophils Percent Auto 3.5 % (0-4.4); Hematocrit 37.6 % (42.0-52.0); Hemoglobin 11.9 g/dL (14.0-18.0); Immature Granulocyte Absolute 0.03 K/mm3 (0.00-0.031); Immature Granulocyte Percent A 0.3 % (0-0.5); Lymphocytes Absolute Auto 2.37 K/mm3 (0.9-3.2); Mean Corpuscular HGB Conc 31.6 g/dl (32-36); Mean Corpuscular Hemoglobin 30.3 pg (26-34); Mean Corpuscular Volume 95.7 fl (80-100); Mean Platelet Volume 9.4 fl (7.4-10.4); Monocytes Absolute Auto 0.8 K/mm3 (0.1-0.6); Monocytes Percent Auto 6.8 % (2.6-8.5); Neutrophils Absolute Auto 7.6 K/mm3 (1.3-6.7); Neutrophils Percent Auto 67.6 % (45.5-73.1); Platelet Count Result 291 k/mm3 (150-375); Red Blood Count 3.93 M/mm3 (4.6-6.20); Red Cell Distribution Width 13.3 % (11.5-14.5); White Blood Count 11.3 K/mm3 (4.5-10.0)
[2021-12-21 10:50] LABS: Appearance Urine Clear (Clear); Bilirubin Urine 1+ (Negative); Blood Urine Negative (Negative); Color Urine Yellow (Yellow); Glucose Urine UA Negative (Negative); Ketones Urine Trace mg/dL (Negative); Leukocyte Esterase Ur Negative LEU/UL (Negative); Nitrate Urine Negative (Negative); Protein Urine 1+ mg/dL (Negative); Specific Grav Ur 1.025 (1.001-1.035); Urobilinogen Urine 0.2 mg/dL (<2.0); pH Urine 5.5 (5.0-9.0)
[2021-12-21 11:03] LABS: Mucus Urine Rare /lpf; WBC Urine 0-3 /hpf
[2021-12-21 11:04] LABS: Add Urine Microscopic? YES; Bacteria Urine Trace /hpf; Squamous Epithelial Cell Urine Rare /hpf (Few)
[2021-12-21 12:37] LABS: Iron 29 ug/dL (49-181)
[2021-12-21 12:44] LABS: Hemoglobin A1C 5.9 % (<5.7)
[2021-12-21 12:54] LABS: Percent Iron Saturation 10 % (20-50)
[2021-12-21 14:43] LABS: Alanine Aminotransferase 19 U/L (6-50); Albumin Level 4.5 g/dL (3.5-5.1); Alkaline Phosphatase 76 U/L (38-126); Anion Gap 11 mmol/L (8-16); Aspartate Amino Transferase 22 U/L (17-59); Bilirubin,Total 0.3 mg/dL (0.2-1.3); Blood Urea Nitrogen 41 mg/dL (9-20); Calcium 9.6 mg/dL (8.4-10.2); Carbon Dioxide 22 mmol/L (22-30); Chloride 103 mmol/L (98-107); Cholesterol 113 mg/dL (0-200); Estimated Glomerular Filt Rate 23; Glucose 111 mg/dL (65-110); HDL Direct 45 mg/dL; Potassium 4.8 mmol/L (3.4-5.0); Sodium 136 mmol/L (137-145); Triglycerides 64 mg/dL (<150)
[2021-12-21 14:57] LABS: LDL Cholesterol Direct 38 mg/dL
[2021-12-21 15:15] LABS: Carcinoembryonic Antigen 1.3 ng/mL (0.0-3.0)
[2021-12-23 20:57] LABS: PSA, Free 0.43 ng/mL; PSA, Total 0.7 ng/mL (<=4.0)
== END 2021-12-21 09:39 | disposition home or self-care (01) ==
PROVIDERS: PCP Family Medicine Sports Medicine; Referring Provider Surgery; Visit Provider Urology
DX: C64.2 Malignant neoplasm of left kidney, except renal pelvis (principal); N20.0 Calculus of kidney; M50.30 Other cervical disc degeneration, unspecified cervical region; M51.34 Other intervertebral disc degeneration, thoracic region; M51.36 Other intervertebral disc degeneration, lumbar region
CPT/HCPCS: 36415; 71250; 74176; 80053; 80061; 81001; 82378; 82607; 82746; 83036; 83540; 83550; 84153; 84154; 84443; 85025

== ENCOUNTER 2022-05-09 01:03 | Day surgery (SDC) | payer MEDICARE, OTHER, SELFPAY ==
[2022-04-28 13:17] VITALS: BMI 32.3
--- NOTE | 2022-05-08 09:41 | WPDANESEPPF ---
Anes - Initial Pre Proc Eval Procedure: Operation Date: 05/09/22 08:45 Proposed Procedures p Screening Colonoscopy - Artie Shepard MD Date/Time: 05/08/22 09:41 Surgeon: Artie Shepard MD Pre Op Diagnosis: Hx of colon cancer Patient Data Age: 66 Gender: M Height: 1.8 m Weight: 105 kg Allergies Allergy/AdvReac Type Severity Reaction Status Date / Time No Known Allergies Allergy Verified 05/09/22 07:40 Home Medications Medication Instructions Recorded Confirmed Type atorvastatin 20 mg tablet 20 mg PO DAILY 11/16/20 04/28/22 History losartan 100 1 tablet PO DAILY 11/16/20 04/28/22 History mg-hydrochlorothiazide 25 mg tablet sitagliptin phosphate 50 1 tablet PO BID 11/16/20 04/28/22 History mg-metformin 1,000 mg tablet (Janumet) aspirin 81 mg tablet 81 mg PO HS 12/17/20 04/28/22 History diclofenac 75 mg-misoprostol 200 1 tablet PO BID 03/29/21 04/28/22 History mcg tablet,immediate,delayed release Patient hx anesthesia problems: none Family hx anesthesia problems: none Results Review: All pre-operative results and documents have been reviewed as part of the pre-operative evaluation. 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 Informed Consent: The patient's anesthetic plan and its attendant risks and benefits were discussed with the patient/family/POA. Questions were solicited and answers provided to the satisfaction of the patient/family/POA.
[2022-05-09 07:41] VITALS: BMI 32.0
[2022-05-09] MEDS: LACTATED RINGERS 1,000 ML 150 ML IV CONT (07:49)
[2022-05-09 07:50] VITALS: BP 107/87; PULSE 93; RESP 20; TEMP 36.3; O2SAT 100
[2022-05-09 07:50] LABS: Glucose Point of Care 159 mg/dl (65-105)
--- NOTE | 2022-05-09 08:36 | PM.HPGS ---
History of Present Illness History of Present Illness Consent: Risks, benefits, and alternatives have been discussed and questions answered. Patient agrees to proceed with procedure. Chief complaint: Hx of colon cancer Narrative: Anshu Mohamud is a 66 year old male with rectosigmoid cancer 11/2020 s/p surgery also found to have RCC removed surgically, doing well Review of Systems Constitutional: Constitutional: Denies headache(s) and Denies weakness Eyes: Eyes: Denies blurry vision ENT: Reports Normal hearing present, Denies headache(s) and Denies neck pain Cardiovascular: Cardiovascular: Denies chest pain and Denies dyspnea Respiratory: Respiratory: Denies dyspnea Gastrointestinal: Gastrointestinal: Reports no additional gastrointestinal complaints Genitourinary: Genitourinary: Denies dysuria Musculoskeletal: Musculoskeletal: Denies neck pain Integumentary/Breasts: Skin/Breast: Denies dry skin Neurologic: Reports Normal hearing present, Denies headache(s) and Denies weakness Psychiatric: Psychiatric: Denies anxiety Endocrine: Endocrine: Denies change in body appearance Hematologic/Lymphatic: Hematologic/Lymphatic: Denies easy bleeding Allergic/Immunologic: Allergic/Immunologic: Denies urticaria PMFSH Past Medical History Medical History Colon polyp Diabetes HTN (hypertension) Hyperlipidemia Mass of colon Surgical History Surgical History H/O colonoscopy History of low anterior resection of rectum 04/07/21 Family History Family History Grandparent Acute myocardial infarction Social History Social History Years smoked: 40 Smoking status: Current some day smoker Tobacco type: cigars Alcohol intake: current Drinks per week: 8 Alcohol use details: on occasion Substance use: never Substance use type: does not use Living arrangements: with family 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 Spiritual care concerns: No Meds Home Medications and Allergies Home Medications Medication Instructions Recorded Confirmed Type atorvastatin 20 mg tablet 20 mg PO DAILY 11/16/20 04/28/22 History losartan 100 1 tablet PO DAILY 11/16/20 04/28/22 History mg-hydrochlorothiazide 25 mg tablet sitagliptin phosphate 50 1 tablet PO BID 11/16/20 04/28/22 History mg-metformin 1,000 mg tablet ([place]rub[place]) aspirin 81 mg tablet 81 mg PO HS 12/17/20 04/28/22 History diclofenac 75 mg-misoprostol 200 1 tablet PO BID 03/29/21 04/28/22 History mcg tablet,immediate,delayed release Allergies Allergy/AdvReac Type Severity Reaction Status Date / Time No Known Allergies Allergy Verified 05/09/22 07:40 Vital Signs Vital Signs - 24 hr 05/09/22 07:50 Temperature 97.3 F L Pulse Rate 93 Respiratory Rate 20 Blood Pressure 107/87 Pulse Oximetry 100 Oxygen Delivery Room Air Exam Const: General: comfortable and no acute distress HENMT: Face/Nose/Sinus: Normal nares present Eyes: General: appearance normal, both eyes and all related structures Neck: Neck: no JVD Resp: Auscultation: clear to auscultation bilaterally Cardio: Rate: regular rate Rhythm: regular rhythm GI: Inspection: non-distended GI Palp: Yes Soft to palpation Skin: General skin exam: normal color Neuro: General: gait normal Speech: normal speech Extrem: General: normal to inspection Psych: Mental Status: mental status grossly normal Assessment and Plan Assessment and plan (1) Rectosigmoid cancer: Code(s): C19 - Malignant neoplasm of rectosigmoid junction Status: Acute Assessment and Plan: colonoscopy
[2022-05-09 09:00] VITALS: BP 85/43; PULSE 98; RESP 25; O2SAT 91
[2022-05-09 09:05] VITALS: BP 85/43; PULSE 102; RESP 24; O2SAT 98
[2022-05-09 09:15] VITALS: BP 106/63; PULSE 92; RESP 16; O2SAT 98
== END 2022-05-09 09:21 | disposition home or self-care (01) ==
PROVIDERS: PCP Family Medicine Sports Medicine; Visit Provider Internal Medicine Gastroenterology
PROC: 0DJD8ZZ Inspection of Lower Intestinal Tract, Via Natural or Artificial Opening Endoscopic (ICD-10-PCS; CPT 45378; principal; 2022-05-09 08:45)
DX: Z08 Encounter for follow-up examination after completed treatment for malignant neoplasm (principal); K63.5 Polyp of colon; D12.2 Benign neoplasm of ascending colon; Z85.038 Personal history of other malignant neoplasm of large intestine; Z98.0 Intestinal bypass and anastomosis status; I10 Essential (primary) hypertension; E11.9 Type 2 diabetes mellitus without complications; E78.5 Hyperlipidemia, unspecified; Z79.84 Long term (current) use of oral hypoglycemic drugs; F17.290 Nicotine dependence, other tobacco product, uncomplicated; E66.9 Obesity, unspecified; Z68.32 Body mass index [BMI] 32.0-32.9, adult
CPT/HCPCS: 45385; 82948; 88305; J2704; J7120

== ENCOUNTER 2022-07-01 09:41 | Outpatient (CLI) | payer MEDICARE, OTHER, SELFPAY ==
--- NOTE | ~2022-07-01 | CT_ITS ---
Clinical Indication: Renal cancer CT Scan of the Chest and Abdomen without Contrast: Technique: Contiguous sections were acquired throughout the chest and abdomen, without IV contrast ad ministration. Dose reduction technique was used on this scan by utilizing automated exposure control and iterative reconstruction technique. The dose-length product (DLP) was 1016.31 mGy-cm. COMPARISON: 12/21/2021 Findings: There is no evidence of any significant mediastinal, hilar or axillary lymphadenopathy. Coronary adilson ry calcifications are noted. No aortic aneurysm. There is no evidence of pleural or pericardial effusion. The lungs are clear, aside from calcified right middle lobe granuloma. The liver, pancreas, gallbladder, and right adrenal gland are within normal limits. Left adrenal glan d not clearly visualized. Calcified splenic granulomas are noted. Patient is status post left nephrec dylan. Stable densely calcified small lesion of the right kidney with adjacent cortical scarring/volum e loss. Stable probable right lower pole renal cyst. No evidence of aortic aneurysm. No lymphadenopa thy. Visualized bowel loops are unremarkable. No ascites seen. Impression: No evidence for active malignancy or metastatic disease. Status post left nephrectomy. Stable densely calcified small right renal lesion with adjacent cortical scarring/volume loss. Stable right lower pole probable renal cyst. Reviewed, dictated and finalized at location . P DYNAMICS INSTRUCTOR Impression: No evidence for active malignancy or metastatic disease. Status post left nephrectomy. Stable densely calcified small right renal lesion with adjacent cortical scarri ng/volume loss. Stable right lower pole probable renal cyst.
== END 2022-07-01 09:42 | disposition home or self-care (01) ==
PROVIDERS: PCP Family Medicine Sports Medicine; Visit Provider Urology
DX: C64.2 Malignant neoplasm of left kidney, except renal pelvis (principal)
CPT/HCPCS: 71250; 74150

== ENCOUNTER 2022-07-04 11:48 | Emergency (ER) | payer MEDICARE, OTHER, SELFPAY ==
[2022-07-04] VITALS (24 sets, daily range): BP systolic 111–146; BP diastolic 67–135; PULSE 100–159; RESP 12–28; TEMP 36.4; O2SAT 89–100
--- NOTE | ~2022-07-04 | CT_ITS ---
Non-contrast Head CT History: Facial weakness Technique: Axial non-contrast imaging of the brain was performed. Dose reduction technique was used on this scan by utilizing automated exposure control and iterative reconstruction technique. The dose -length product (DLP) was 756.67 mGy-cm. Findings: There is no evidence of intracranial hemorrhage, mass lesion, or acute infarct. Brain par enchyma appears normal. The ventricles and subarachnoid spaces are normal in size. The calvarium ap pears normal. The visualized paranasal sinuses and mastoid air cells are clear. Impression: No significant abnormality seen. Reviewed, dictated and finalized at location . ET SPECULATOR Impression: No significant abnormality seen.
--- NOTE | 2022-07-04 12:21 | ECG_ITS ---
Measurements Intervals [place] Rate: 153 P: [place]: 0 QRS: 27 QRSD: 78 T: 51 QT: 255 QTc: 408 Interpretive Statements SUPRAVENTRICULAR TACHYCARDIA, POSSIBLY A ATRIAL FLUTTER WITH 2-1 BLOCK LOW QRS VOLTAGE IN PRECORDIAL LEADS [QRS DEFLECTION < 1.0 mV IN CHEST LEADS] NONSPECIFIC T-WAVE ABNORMALITY ABNORMAL RHYTHM ECG NO PREVIOUS ECG AVAILABLE FOR COMPARISON Electronically Signed On 07-05-2022 11:18:58 MACHINE FILLER by Esme Fenton M.D.
[2022-07-04 13:19] LABS: Basophils Absolute Auto 0.1 K/mm3 (0.0-0.1); Eosinophils Absolute Auto 0.3 K/mm3 (0-0.3); Eosinophils Percent Auto 2.1 % (0-4.4); Hematocrit 41.4 % (42.0-52.0); Hemoglobin 14.1 g/dL (14.0-18.0); Immature Granulocyte Absolute 0.14 K/mm3 (0.00-0.031); Immature Granulocyte Percent A 1.1 % (0-0.5); Lymphocytes Absolute Auto 2.51 K/mm3 (0.9-3.2); Lymphocytes Percent Auto 19.8 % (18.3-44.2); Mean Corpuscular HGB Conc 34.1 g/dl (32-36); Mean Corpuscular Hemoglobin 30.9 pg (26-34); Mean Corpuscular Volume 90.6 fl (80-100); Mean Platelet Volume 9.4 fl (7.4-10.4); Monocytes Absolute Auto 1.2 K/mm3 (0.1-0.6); Monocytes Percent Auto 9.6 % (2.6-8.5); Neutrophils Absolute Auto 8.4 K/mm3 (1.3-6.7); Neutrophils Percent Auto 66.4 % (45.5-73.1); Platelet Count Result 359 k/mm3 (150-375); Red Blood Count 4.57 M/mm3 (4.6-6.20); Red Cell Distribution Width 12.3 % (11.5-14.5); White Blood Count 12.7 K/mm3 (4.5-10.0)
[2022-07-04] MEDS: ACYCLOVIR SODIUM IVPB 800 MG in DEXTROSE 5% IN WATER 250 ML 266 MG IVPB (13:21)
[2022-07-04 13:30] LABS: Partial Thromboplastin Time 26.4 SECONDS (22.3-36.8); Prothrombin Time 12.9 Seconds (11.1-14.7)
--- NOTE | 2022-07-04 13:30 | ED.SKABFB ---
HPI - Skin/Abscess/Foreign Bdy General Chief complaint: Skin/Abscess/Foreign Body Stated complaint: eye redness and right sided facial rash Time Seen by Provider: 07/04/22 12:32 History of Present Illness HPI narrative: Patient is a 66-year-old male who presents ER with a rash to his right face. Is been ongoing for 2 days. It is painful to touch and with lying on his side. He developed blisters and scabbing with it. It is located on his right nose his periorbital region, and his frontal scalp. He reports over the last 5 weeks he has been dealing with some eye issues as well. He reports he is having ptosis of his right eye that would occur when he did see bright lights. He did go into a dark room and rest and then his eye would work again. This is continued despite being on some oral antibiotics. He reports he is felt like he has had some scratchiness in that right eye over the same amount of time. He also reports some discomfort in his right ear but no rash or difficulty hearing. He has additional weakness in his face when he is eating food. Reports if he eats a pork steak he can chew it 4 times before his jaw becomes weak and stuck in an open position and he has to use a hand to then close his mouth. Patient also reports that over the last couple of days he has developed weakness in his legs where he can only walk from one room to another before he has to sit down and rest to regain his strength. He has no history of a neurologic disorder. Denies chest pain or ration of the heart. No fevers or chills or sweats. He does have some right eye drainage. He also reports she has double vision over the last month whenever he is looking to the right or sometimes when he looks up or down. He has not yet seen a polygraph examiner. He did talk to his primary care doctor who is ordered an outpatient MRI of his head. Related Data Home Medications Medication Instructions Recorded Confirmed atorvastatin 20 mg tablet 20 mg PO DAILY 11/16/20 04/28/22 losartan 100 1 tablet PO DAILY 11/16/20 04/28/22 mg-hydrochlorothiazide 25 mg tablet sitagliptin phosphate 50 1 tablet PO BID 11/16/20 04/28/22 mg-metformin 1,000 mg tablet (Janumet) aspirin 81 mg tablet 81 mg PO HS 12/17/20 04/28/22 diclofenac 75 mg-misoprostol 200 1 tablet PO BID 03/29/21 04/28/22 mcg tablet,immediate,delayed release Allergies Allergy/AdvReac Type Severity Reaction Status Date / Time No Known Allergies Allergy Verified 05/09/22 07:40 [facility] Past Medical History Medical History Colon polyp Diabetes HTN (hypertension) Hyperlipidemia Mass of colon Surgical History Surgical History H/O colonoscopy History of low anterior resection of rectum 04/07/21 Family History Family History Grandparent Acute myocardial infarction Social History Social History Years smoked: 40 Smoking status: Current some day smoker Tobacco type: cigars Alcohol intake: current Drinks per week: 8 Alcohol use details: on occasion Substance use: never Substance use type: does not use Living arrangements: with family Occupation/Education: retired 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 HEAD: Normocephalic, atraumatic. EYES: Pupils equal and reactive the right pupil is slightly sluggish. Right eye with lateral gaze palsy. Fluorescein staining magnification shows dendritic lesion to the cornea of the right eye. There is ptosis of the right eyelid. Rash consistent with shingles in the periorbital region. ENT: Mucous membranes moist. Shingles rash to the right nose and face/scalp. NECK: Supple. CHEST: C
[2022-07-04 13:32] LABS: Alanine Aminotransferase 23 U/L (6-50); Albumin Level 4.4 g/dL (3.5-5.1); Alkaline Phosphatase 80 U/L (38-126); Anion Gap 10 mmol/L (8-16); Aspartate Amino Transferase 24 U/L (17-59); Blood Urea Nitrogen 37 mg/dL (9-20); Calcium 8.9 mg/dL (8.4-10.2); Carbon Dioxide 25 mmol/L (22-30); Chloride 88 mmol/L (98-107); Estimated CRCL calculation 33 ml/min; Estimated Glomerular Filt Rate 27; Glucose 174 mg/dL (65-110); Potassium 4.3 mmol/L (3.4-5.0); Sodium 123 mmol/L (137-145)
[2022-07-04] MEDS: ERYTHROMYCIN OPHTH OINTMENT 1 GM TUBE 1 APPLIC RIGHT EYE (14:22)
[2022-07-04 15:15] LABS: Influenza A QL RT-PCR Negative (Negative); Influenza B QL RT-PCR Negative (Negative); SARS-CoV-2 RNA PCR Negative
[2022-07-04] MEDS: dilTIAZem HCl INJ 25 MG/5 ML VIAL 10 MG IV PUSH (15:22)
--- NOTE | 2022-07-04 16:03 | PC.NURSE ---
[facility] accepted [facility] transfer to [facility] ER ETA 15min
== END 2022-07-04 16:39 | disposition short-term general hospital (02) ==
PROVIDERS: Emergency Provider Emergency Medicine
DX: B02.30 Zoster ocular disease, unspecified (principal); I48.91 Unspecified atrial fibrillation; H02.401 Unspecified ptosis of right eyelid; Z20.822 Contact with and (suspected) exposure to COVID-19; E11.9 Type 2 diabetes mellitus without complications; I10 Essential (primary) hypertension; E78.5 Hyperlipidemia, unspecified; F17.290 Nicotine dependence, other tobacco product, uncomplicated; Z86.010 Personal history of colon polyps; Z79.82 Long term (current) use of aspirin; Z79.84 Long term (current) use of oral hypoglycemic drugs
CPT/HCPCS: 36415; 70450; 80053; 85025; 85610; 85730; 87636; 93005; 96365; 96375; 99285; A9270; J0133; J7060

== ENCOUNTER 2022-11-02 16:43 | Outpatient (CLI) | payer MEDICARE, OTHER, SELFPAY ==
[2022-11-03 11:21] LABS: Basophils Absolute Auto 0.1 K/mm3 (0.0-0.1); Basophils Percent Auto 0.9 % (0.2-1.2); Eosinophils Absolute Auto 0.2 K/mm3 (0-0.3); Eosinophils Percent Auto 1.7 % (0-4.4); Hematocrit 38.4 % (42.0-52.0); Hemoglobin 11.9 g/dL (14.0-18.0); Immature Granulocyte Absolute 0.08 K/mm3 (0.00-0.031); Immature Granulocyte Percent A 0.9 % (0-0.5); Lymphocytes Absolute Auto 2.85 K/mm3 (0.9-3.2); Lymphocytes Percent Auto 32.2 % (18.3-44.2); Mean Corpuscular Hemoglobin 30.7 pg (26-34); Mean Corpuscular Volume 99.2 fl (80-100); Mean Platelet Volume 9.7 fl (7.4-10.4); Monocytes Absolute Auto 0.6 K/mm3 (0.1-0.6); Monocytes Percent Auto 6.3 % (2.6-8.5); Neutrophils Absolute Auto 5.1 K/mm3 (1.3-6.7); Platelet Count Result 432 k/mm3 (150-375); Red Blood Count 3.87 M/mm3 (4.6-6.20); Red Cell Distribution Width 15.4 % (11.5-14.5); White Blood Count 8.9 K/mm3 (4.5-10.0)
[2022-11-03 11:23] LABS: Hemoglobin A1C 11.9 % (<5.7)
[2022-11-03 11:24] LABS: Free T4 Free Thyroxine 1.49 ng/mL (0.78-2.19)
[2022-11-03 11:49] LABS: Alanine Aminotransferase 21 U/L (6-50); Albumin Level 3.9 g/dL (3.5-5.1); Alkaline Phosphatase 85 U/L (38-126); Anion Gap 11 mmol/L (8-16); Aspartate Amino Transferase 20 U/L (17-59); Bilirubin,Total 0.3 mg/dL (0.2-1.3); Blood Urea Nitrogen 20 mg/dL (9-20); Calcium 9.2 mg/dL (8.4-10.2); Carbon Dioxide 23 mmol/L (22-30); Chloride 103 mmol/L (98-107); Cholesterol 116 mg/dL (0-200); Estimated Glomerular Filt Rate 46; Glucose 171 mg/dL (65-110); HDL Direct 43 mg/dL; Potassium 4.7 mmol/L (3.4-5.0); Sodium 137 mmol/L (137-145); Triglycerides 156 mg/dL (<150)
[2022-11-03 13:54] LABS: LDL Cholesterol Direct 53 mg/dL
[2022-11-04 05:51] LABS: Folic Acid 13.4 ng/mL (2.76->20)
== END 2022-11-02 16:44 | disposition home or self-care (01) ==
LOC: ANHLAB 16:48
PROVIDERS: PCP Family Medicine Sports Medicine; Visit Provider Family Medicine Sports Medicine
DX: C64.9 Malignant neoplasm of unspecified kidney, except renal pelvis (principal); C18.9 Malignant neoplasm of colon, unspecified; G04.90 Encephalitis and encephalomyelitis, unspecified; E11.9 Type 2 diabetes mellitus without complications; F17.200 Nicotine dependence, unspecified, uncomplicated; E66.9 Obesity, unspecified; E78.5 Hyperlipidemia, unspecified; I48.91 Unspecified atrial fibrillation; I10 Essential (primary) hypertension; Z13.21 Encounter for screening for nutritional disorder
CPT/HCPCS: 36415; 80053; 80061; 82607; 82746; 83036; 84439; 84443; 85025

== ENCOUNTER 2024-01-16 08:57 | Outpatient (CLI) | payer MEDICARE, OTHER, SELFPAY ==
[2024-01-16 09:55] LABS: Basophils Absolute Auto 0.1 K/mm3 (0.0-0.1); Basophils Percent Auto 0.8 % (0.2-1.2); Eosinophils Absolute Auto 0.2 K/mm3 (0-0.3); Eosinophils Percent Auto 2.1 % (0-4.4); Hematocrit 37.1 % (42.0-52.0); Hemoglobin 12.4 g/dL (14.0-18.0); Immature Granulocyte Absolute 0.07 K/mm3 (0.00-0.031); Immature Granulocyte Percent A 0.6 % (0-0.5); Lymphocytes Absolute Auto 3.25 K/mm3 (0.9-3.2); Lymphocytes Percent Auto 29.1 % (18.3-44.2); Mean Corpuscular HGB Conc 33.4 g/dl (32-36); Mean Corpuscular Hemoglobin 32.3 pg (26-34); Mean Corpuscular Volume 96.6 fl (80-100); Mean Platelet Volume 10.1 fl (7.4-10.4); Monocytes Absolute Auto 0.8 K/mm3 (0.1-0.6); Monocytes Percent Auto 7.2 % (2.6-8.5); Neutrophils Absolute Auto 6.7 K/mm3 (1.3-6.7); Neutrophils Percent Auto 60.2 % (45.5-73.1); Platelet Count Result 304 k/mm3 (150-375); Red Blood Count 3.84 M/mm3 (4.6-6.20); Red Cell Distribution Width 12.6 % (11.5-14.5); White Blood Count 11.2 K/mm3 (4.5-10.0)
[2024-01-16 10:11] LABS: Alanine Aminotransferase 24 U/L (6-50); Albumin Level 4.7 g/dL (3.5-5.1); Alkaline Phosphatase 66 U/L (38-126); Anion Gap 10 mmol/L (4-12); Aspartate Amino Transferase 23 U/L (17-59); Bilirubin,Total 0.5 mg/dL (0.2-1.3); Blood Urea Nitrogen 30 mg/dL (9-20); Carbon Dioxide 29 mmol/L (22-30); Chloride 97 mmol/L (98-107); Cholesterol 111 mg/dL (0-200); Estimated Glomerular Filt Rate 35; Glucose 190 mg/dL (65-110); HDL Direct 81 mg/dL; Potassium 4.2 mmol/L (3.4-5.0); Sodium 136 mmol/L (137-145); Triglycerides 77 mg/dL (<150)
[2024-01-16 10:25] LABS: Hemoglobin A1C 9.1 % (<5.7)
[2024-01-16 10:40] LABS: LDL Cholesterol Direct < 30 mg/dL
== END 2024-01-16 08:58 | disposition home or self-care (01) ==
LOC: ANHLAB 09:03
PROVIDERS: PCP Family Medicine; Visit Provider Family Medicine
DX: C64.9 Malignant neoplasm of unspecified kidney, except renal pelvis (principal); C18.9 Malignant neoplasm of colon, unspecified; G04.90 Encephalitis and encephalomyelitis, unspecified; E11.9 Type 2 diabetes mellitus without complications; E55.9 Vitamin D deficiency, unspecified; E66.9 Obesity, unspecified; G70.00 Myasthenia gravis without (acute) exacerbation; D64.9 Anemia, unspecified; E78.5 Hyperlipidemia, unspecified; E87.1 Hypo-osmolality and hyponatremia; I48.91 Unspecified atrial fibrillation; I25.10 Atherosclerotic heart disease of native coronary artery without angina pectoris; I10 Essential (primary) hypertension
CPT/HCPCS: 36415; 80053; 80061; 83036; 84443; 85025

== ENCOUNTER 2025-02-18 07:38 | Outpatient (CLI) | payer MEDICARE, SELFPAY ==
--- OUTSIDE RECORDS SUMMARY | 2025-02-18 07:48 | XMS_ITS | Encounter Summary ---
Author Organization [facility] Health Address [address] [place] [address] Care Team Providers Care Automobile Body Customizer Name Role Phone Torrey Coley MD Primary Care Provider [phone] Encounter Details Date Type Department Care Team (Late st Contact Info) Description 07/18/2022 Ophth Exam [facility] [address] [place] [address] Shahbaz Brown MD [facility] [address] [address] Social History Tobacco Use Types Packs/Day Years Used Date Smoking Tobacco: Some Days Cigars Smokeless Tobacco: Never Alcohol Use Standard Drinks/Week Comments Yes 0 (1 standard drink = 0.6 oz pur e alcohol) AUDIT-C Answer Date Recorded Q1: How often do you have a drink containing alc ohol? 2-4 times a month 07/07/2022 Q2: How many drinks containi ng alcohol do you have on a typical day when you are drinking? 3 or 4 07/07/2022 Q3: How often do you have si x or more drinks on one occasion? Less than monthly 07/07/2022 Overall Financial Resource Strain (CARDIA) Answe r Date Recorded How hard is it for you to pa y for the very basics like food, housing, medical care, and heating? Not hard at all 07/07/2022 [facility] of Occupat ional Health - Occupational Stress Questionnaire Answer Date Recorded Do you feel stress - tense, restless, nervous, or anxious, or unable to sleep at night because your mind is troubled all the time - these days? Not at all 07/07/2022 Hunger Vital Sign Answer Date Recorded Within the past 12 months, y ou worried that your food would run out before you got the money to buy more. Never true 07/07/19 23 Within the past 12 months, t he food you bought just didn't last and you didn't have money to get more. Never true 07/07/2022 PRAPARE - Transportation Answer Date Re corded In the past 12 months, has l ack of transportation kept you from medical appointments or from getting medications? No 06/22 In the past 12 months, has l ack of transportation kept you from meetings, work, or from getting things needed for daily living? No 07/07/2022 Housing Stability Vital Sign Answer Lauri e Recorded In the last 12 months, was t here a time when you were not able to pay the mortgage or rent on time? No 07/07/2022 In the last 12 months, how many places have you lived? 1 07/07/2022 In the last 12 months, was t here a time when you did not have a steady place to sleep or slept in a half-way (including now)? No 07/07/2022 Sex and Gender Information Value Date Recorded Sex Assigned at Not on file Legal Sex Male 6:19 AM TERA Gender Identity Not on file Sexual Orientation Not on file documented as of this encounter Functional Status * Is person deaf or have serious hearing difficulty? Answer Date of Assessment Author No 07/07/2022 8:00 AM Eva Arshad RN * Is person blind or have serious difficulty seeing? Answer Date of Assessment Author No 07/07/2022 8:00 AM Eva Arshad RN * Does person have serious difficulty walking/climbing stairs? Answer Date of Assessment Author No 07/07/2022 8:00 AM Eva Arshad RN * Does person have difficulty dressing/bathing? Answer Date of Assessment Author No 07/07/2022 8:00 AM Eva Arshad RN * Does person have difficulty doing errands alone? Answer Date of Assessment Author No 07/07/2022 8:00 AM Eva Arshad RN documented as of this encounter Mental Status * Does person have difficulty concentrating/remembering/making decisions? Answer Entry Date Author No 07/07/2022 8:00 AM Eva Arshad RN documented in this encounter Plan of Treatment Not on file documented as of this encounter Visit Diagnoses Not on filedocumented in this encounter Care Teams Automobile Body Customizer Relationship Specialty Start Date End Date Torrey Coley MD [address] [place] [address] PCP - General 07/18/22 documented as of this encounter
--- OUTSIDE RECORDS SUMMARY | 2025-02-18 07:48 | XMS_ITS | Encounter Summary ---
Author Organization [employer] Address [address] [place] [address] Care Team Providers Care Geophysical Laboratory Supervisor Name Role Phone Marcelo Bowden MD Primary Care Provider [phone] Encounter Details Date Type Department Care Team (Late st Contact Info) Description 10/12/2004 Outpatient Historical HIS CARD ICE CREAM DIPPER Jose David Santillan MD [address] [facility] [address] [place] [address] CHEST PAIN NOS (Primary Dx) Social History Tobacco Use Types Packs/Day Years Used Date Smoking Tobacco: Never Assessed Sex and Gender Information Value Date Recorded Sex Assigned at Not on file Legal Sex Male 4:41 AM CLINICAL MASSAGE THERAPIST Gender Identity Not on file Sexual Orientation Not on file documented as of this encounter Plan of Treatment Not on file documented as of this encounter Visit Diagnoses Diagnosis Chest pain, unspecified- Primary documented in this encounter Care Teams Geophysical Laboratory Supervisor Relationship Specialty Start Date End Date Marcelo Bowden MD [address] [place] [address] PCP - General Family Practice 12/11/20 documented as of this encounter
--- OUTSIDE RECORDS SUMMARY | 2025-02-18 07:48 | XMS_ITS | Encounter Summary ---
Author Organization [facility] Address [address] [place] [address] Care Team Providers Care Rubber Chemist Name Role Phone Torrey Coley MD Primary Care Provider [phone] Marcelo Bowden MD Primary Care Provider [phone] Torrey Coley MD Primary Care Provider [phone] Encounter Details Date Type Department Care Team (Late st Contact Info) Description 07/05/2022 Ophth Exam [facility] [address] [place] [phone] Shahbaz Brown MD [facility] [place] [id number] Social History Tobacco Use Types Packs/Day Years [...] and heating? Not hard at all 07/07/2022 [facility] [place] of Occupat ional Health - Occupational Stress [...] place to sleep or slept in a nursing home (including now)? No 07/07/2022 Sex and Gender Information Value Date Recorded Sex Assigned at Not on file Legal Sex Male 6:19 AM OBJECTS CONSERVATOR Gender Identity Not on file Sexual Orientation Not on file documented as of this encounter Functional Status * Question Answer Date of Assessment Author Q1: How often do you have a drink containing alcohol? 2-4 times a month 07/07/2022 12:00 PM Razia Arshad RN Q2: How many drinks containing alcohol do you have on a typical day when you are drinking? 3 or 4 07/07/2022 12:00 PM Razia Arshad RN Q3: How often do you have six or more drinks on one occasion? Less than monthly 07/07/2022 12:00 PM Razia Arshad RN * Audit-C Score Answer Date of Assessment Author 4 07/07/2022 12:00 PM Marisol Arshad RN documented as of this encounter Plan of Treatment Not on file documented as of this encounter Visit Diagnoses Not on filedocumented in this encounter Care Teams Rubber Chemist Relationship Specialty Start Date End Date Torrey Coley MD [address] [place] [address] PCP - General 12/01/20 07/06/22 [place] [address] [place] [address] PCP - General Family Medicine 07/07/22 07/17/22 [place] [address] [place] [address] PCP - General 07/18/22 documented as of this encounter
--- OUTSIDE RECORDS SUMMARY | 2025-02-18 07:48 | XMS_ITS | Encounter Summary ---
Author Organization [facility] Address [address] [place] [address] Care Team Providers Care Cath Lab Radiological Technologist Name Role Phone Torrey Coley MD Primary Care Provider [phone] Marcelo Bowden MD Primary Care Provider [phone] Torrey Coley MD Primary Care Provider [phone] Encounter Details Date Type Department Care Team (Late st Contact Info) Description 07/06/2022 Ophth Exam [facility] [address] [place] [phone] Shahbaz Brown MD [facility] [place] [id number] Social History Tobacco Use Types Packs/Day Years [...] and heating? Not hard at all 07/07/2022 [facility] [place] of Occupat ional Health - Occupational Stress [...] place to sleep or slept in a penitentiary (including now)? No 07/07/2022 Sex and Gender Information Value Date Recorded Sex Assigned at Not on file Legal Sex Male 6:19 AM PANTOGRAPH SETTER Gender Identity Not on file Sexual Orientation [...] on filedocumented in this encounter Care Teams Cath Lab Radiological Technologist Relationship Specialty Start Date End Date Torrey Coley MD [address] [place] [address] PCP - General 12/01/20 07/06/22 [place] [address] [place] [address] PCP - General Family Medicine 07/07/22 07/17/22 [place] [address] [place] [address] PCP - General 07/18/22 documented as of this encounter
--- OUTSIDE RECORDS SUMMARY | 2025-02-18 07:48 | XMS_ITS | Encounter Summary ---
Author Organization [facility] Address [address] [facility] [place] [address] Care Team Providers Care Printed Circuit Boards Solder Leveler Name Role Phone Torrey Coley MD Primary Care Provider [phone] Marcelo Bowden MD Primary Care Provider [phone] Torrey Coley MD Primary Care Provider [phone] Encounter Details Date Type Department Care Team (Late Contact Info) Description 07/04/2022 Ophth Exam [facility] [address] [place] [phone] Nguyen Locke DO [address] [place] [phone] Social History Tobacco Use Types Packs/Day Years [...] and heating? Not hard at all 07/07/2022 [facility] [place] of Occupat ional Health - Occupational Stress [...] on filedocumented in this encounter Care Teams Printed Circuit Boards Solder Leveler Relationship Specialty Start Date End Date Torrey Coley MD [address] [place] [address] PCP - General 12/01/20 07/06/22 [place] [address] [place] [address] PCP - General Family Medicine 07/07/22 07/17/22 Torrey Coley MD [address] [place] [address] PCP - General 07/18/22 documented as of this encounter
--- OUTSIDE RECORDS SUMMARY | 2025-02-18 07:48 | XMS_ITS | Encounter Summary ---
Author Organization [facility] Address [address] [facility] [place] [address] Care Team Providers Care Campground Hand Name Role Phone Marcelo Bowden MD Primary Care Provider [phone] Torrey Coley MD Primary Care Provider [phone] Encounter Details Date Type Department Care Team (Late st Contact Info) Description 07/12/2022 Ophth Exam [facility] [address] [place] [phone] Shahbaz Brown MD [address] [facility] [address] [place] [address] Social History Tobacco Use Types Packs/Day Years [...] and heating? Not hard at all 07/07/2022 [facility] [place] of Occupat ional Health - Occupational Stress [...] place to sleep or slept in a chcf (including now)? No 07/07/2022 Sex and Gender [...] on filedocumented in this encounter Care Teams Campground Hand Relationship Specialty Start Date End Date Marcelo Bowden MD [address] [place] [address] PCP - General Family Medicine 07/07/22 07/17/22 Torrey Coley MD [address] [place] [address] PCP - General 07/18/22 documented as of this encounter
--- OUTSIDE RECORDS SUMMARY | 2025-02-18 07:48 | XMS_ITS | Encounter Summary ---
Author Organization [facility] Address [address] [place] [address] Care Team Providers Care Fan Mail Clerk Name Role Phone Marcelo Bowden MD Primary Care Provider [phone] Torrey Coley MD Primary Care Provider [phone] Encounter Details Date Type Department Care Team (Late st Contact Info) Description 07/08/2022 Ophth Exam [facility] [address] [place] [phone] Shahbaz Brown MD [address] [facility] [address] [place] [address] Social History Tobacco Use Types Packs/Day [...] and heating? Not hard at all 07/07/2022 [facility] [place] of Occupat ional Health - Occupational Stress [...] place to sleep or slept in a assisted (including now)? No 07/07/2022 Sex and Gender [...] of Assessment Author No 07/07/2022 8:00 AM Eav Arshad RN documented as of this encounter Mental Status * Does person have difficulty concentrating/remembering/making decisions? Answer Entry Date Author No 07/07/2022 8:00 AM Eva Arshad RN documented in this encounter Plan of Treatment Not on file documented as of this encounter Visit Diagnoses Not on filedocumented in this encounter Care Teams Fan Mail Clerk Relationship Specialty Start Date End Date Marcelo Bowden MD [address] [place] [address] PCP - General Family Medicine 07/07/22 07/17/22 Torrey Coley MD [address] [place] [address] PCP - General 07/18/22 documented as of this encounter
--- OUTSIDE RECORDS SUMMARY | 2025-02-18 07:48 | XMS_ITS | Clinical Summary ---
Author Organization [facility] Address [address] [place] [address] Care Team Providers Care Psychiatric Aide Name Role Phone Marcelo Bowden MD Primary Care Provider [phone] Allergies No known active allergies Medications diclofenac-miSOP ROStol (ARTHROTEC) 75-200 mg-mcg Tab,IR & Delay Rel,Multiphasic Acti ve atorvastatin (LIPITOR) 20 mg tablet TAKE 1 TABLET BY MOUTH EVERY DAY 10/20/2020 Active losartan-hydroCH LOROthiazide (HYZAAR) 100-25 mg tablet TAKE 1 TABLET BY MOUTH EVERY DAY 10/20/2020 Active Janumet 50-1,000 mg tablet TAKE 1 TABLET BY MOUTH TWICE A DAY 10/20/2020 Active Active Problems Problem Noted Date Diagnosed Date 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 Family History Relation Name Status Comments Brother Alive Daughter 1 Alive Daughter 2 Alive Daughter 3 Alive Daughter 4 Alive Father Mother Sister 1 Alive Sister 2 Alive Sister 3 Alive Social History Tobacco Use Types Packs/Day Years Used Date Smoking Tobacco: Some Days Cigars Smokeless Tobacco: Never Alcohol Use Standard Drinks/Week Comments Yes 0 (1 standard drink = 0.6 oz pur e alcohol) Sex and Gender Information Value Date Recorded Sex Assigned at Not on file Legal Sex Male 4:41 AM RN [facility] Gender Identity Not on file Sexual Orientation Not on file Last Filed Vital Signs Vital Sign Reading Time Taken Comments Blood Pressure 132/69 12/24/2020 1:38 PM CDT Pulse 105 12/24/2020 1:38 PM CDT Temperature 36.8 C (98.2 F) 12/24/2020 1:38 PM CDT Respiratory Rate - - Oxygen Saturation 97% 12/24/2020 1:38 PM CDT Inhaled Oxygen Concentration - - Weight 109.6 kg (241 lb 11.2 oz) 12/24/2020 1:38 PM CDT Height 180.3 cm (5' 11) 12/24/2020 1:38 PM CDT Body Mass Index 33.71 12/24/2020 1:38 PM CDT Plan of Treatment Health Maintenance Due Date Last Done Comments DIABETES ANNUAL FOOT EXAM 10/02/1971 DIABETES MICROALBUMIN ANNUAL SCREEN 10/02/1971 LDL CHOLESTEROL ANNUAL 10/02/1971 DTAP/TDAP/TD VACCINES (1 - Tdap) 1972 PNEUMOCOCCAL VACCINE 50+ YEARS (1 of 2 - PCV) 10/01/18 73 ZOSTER VACCINE (1 of 2) 10/02/2003 RSV VACCINE (60+ or ) (1 - Risk 60-74 years 1-dose series) 2013 DIABETES HBA1C Q 6 MONTHS 01/02/2023 07/05/2022 DIABETES ANNUAL RETINAL EXAM 07/26/2023 07/25/2022 INFLUENZA VACCINE (#1) 2024 Insurance [employer] PPO [id number] Care Teams Psychiatric Aide Relationship Specialty Start Date End Date Marcelo Bowden MD [address] [place] [address] PCP - General Family Practice 12/11/20
--- OUTSIDE RECORDS SUMMARY | 2025-02-18 07:48 | XMS_ITS | Clinical Summary ---
Author Organization [facility] Address [address] [place] [address] Care Team Providers Care Field Hauler Name Role Phone Torrey Coley MD Primary Care Provider [phone] Source Comments [facility],non-owned Affiliates and Associated Physician Practices is amultiple site organization consisting of ambulatory clinics and hospital sitesin [place], [place], [place] and [place]. This disclosure is being madepursuant to the Care Everywhere program and may not contain all information available regarding this patient. Last updated 18.[employer] Allergies No known active allergies Medications * Be aware that medications may not be up to date on this document. Alwaysverify current medications with the patient. oxyCODONE-acetam inophen (Percocet) 5-325 MG tabletIndication s:Myasthenia gravis (HCC),Herpes zoster ophthalmicus Take 1 (one) tablet by mouth every 6 hours as needed 12 tablet 3 Active Additional Information Patient not taking.Reported on 08/30/2022 sodium bicarbonate 650 MG tablet Take 1 (one) tablet by mouth 4 times daily 3 Active amLODIPine (Norvasc) 10 MG tablet Take 1 (one) tablet by mouth once daily 30 tablet 1 3 Active brimonidine (Alphagan P) 0.15 % ophthalmic solution Instill 1 (one) drop into right eye 3 times daily 15 mL 1 3 Active Additional Information Patient not taking.Reported on 08/30/2022 dorzolamide-kasi lol (Cosopt) 22.3-6.8 MG/ML ophthalmic solution Instill 1 (one) drop into right eye 2 times daily 10 mL 1 3 Active erythromycin (Romycin) 5 MG/GM ophthalmic ointment Instill into right eye 4 times daily 3.5 g 1 3 Active Additional Information Patient not taking.Reported on 08/30/2022 polyvinyl alcohol-povidone PF 1.4-0.6 % ophthalmic solution Instill 1 (one) drop into right eye 6 times daily while awake 15 mL 1 3 Active Additional Information Patient not taking.Reported on 08/30/2022 artificial tears ophthalmic solution Instill 1 (one) drop into both eyes 3 times daily as needed 30 mL 1 3 Active atorvastatin (Lipitor) 20 MG tablet Take 1 (one) tablet by mouth once daily 3 Active Janumet 50-1000 MG tablet Take 1 (one) tablet by mouth 2 times daily 3 Active diclofenac sodium EC (Voltaren) 75 MG tablet Take 1 (one) tablet by mouth once daily 3 Active gabapentin (Neurontin) 300 MG capsule Take 300mg three times a day per 1 week then increase to 600mg three times a day. 60 capsule 4 3 Active pyRIDostigmine (Mestinon) 60 MG tablet Take 1 (one) tablet by mouth 3 times daily as needed (Take one tablet as needed it three times a day.) 270 Each 3 3 Active predniSONE (Deltasone) 10 MG tablet Please start taking 30 mg per 1 week, then increase to 40mg for 1 week, then 50 mg for 1 week and then 60mg per 1 week. 60 tablet 3 3 Active omeprazole (PriLOSEC) 20 MG capsule Take 1 (one) capsule by mouth once daily 30 capsule 3 3 Active Cholecalciferol (Vitamin D) 50 MCG (2000 UT) capsule Take 1 (one) capsule by mouth once daily 30 capsule 3 3 Active Active Problems Problem Noted Date Diagnosed Date Hyponatremia 07/06/2022 JASON (acute kidney injury) 07/06/2022 Anemia in chronic kidney disease (CKD) 3 Type 2 diabetes mellitus wit hout complication, without long-term current use of insulin 07/06/2022 Hypertension 07/06/2022 Keratitis, herpetic 07/06/2022 Scleritis 07/06/2022 Ocular hypertension 07/06/2022 Blurred vision, right eye 07/04/2022 Troponin I above reference range 07/04/2022 Acute right eye pain 07/04/2022 Left renal mass 01/06/2021 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 Not hard at all 07/07/2022 [facility] - Occupational Stress [...] money to buy more. Never true 07/07/19 Within the past 12 months, t he [...] place to sleep or slept in a long term (including now)? No 07/07/2022 Sex and Gender Information Value Date Recorded Sex Assigned at Not on file Legal Sex Male 6:19 AM AIRPLANE ENGINEER Gender Identity Not on file Sexual Orientation Not on file Last Filed Vital Signs Vital Sign Reading Time Taken Comments Blood Pressure 143/75 08/30/2022 1:44 PM CDT Pulse 87 08/30/2022 1:44 PM CDT Temperature 36.4 C (97.5 F) 08/30/2022 1:44 PM CDT Respiratory Rate 18 07/18/2022 5:54 AM AIRPLANE ENGINEER Oxygen Saturation 88% 08/30/2022 1:44 PM CDT Inhaled Oxygen Concentration - - Weight 98.7 kg (217 lb 8 oz) 08/30/2022 1:44 PM CDT Height 181.6 cm (5' 11.5) 08/30/2022 1:44 PM CD T Body Mass Index 29.91 08/30/2022 1:44 PM CDT Plan of Treatment Health Maintenance Due Date Last Done Comments COLOGUARD (AGES 45-75) - COLON CA SCREENING 1953 COLON MONITORING 1953 COLONOSCOPY - COLON CA SCREENING 1953 CT COLONOGRAPHY - COLON CA SCREENING 1953 Colorectal Cancer Screening 1953 FIT - COLON CA SCREENING 1953 FLEX SIG - COLON CA SCREENING 1953 MEDICARE AWV 12 MONTHS 1953 DTAP/TDAP/TD VACCINES (1 - Tdap) 1972 PNEUMOCOCCAL VACCINE 50+ (1 of 2 - PCV) 1972 ZOSTER VACCINE (1 of 2) 10/02/2003 AAA SCREENING 2018 DIABETES-FOOT EXAM WITH MONOFILAMENT 07/06/2022 DIABETES-HGB A1C 01/02/2023 07/05/2022 DIABETES-SERUM CREATININE 07/17/20232022, 07/15/2022, 07/14/2022, Additional history exists DEPRESSION SCREENING 05/22/2024 DIABETES - URINE PROTEIN SCREENING 05/22/2024 07/07/2022 DIABETES RETINOPATHY SCREENING 07/25/2024 07/25/2022, 07/08/2022, 07/05/2022, Additional history exists COVID-19 VACCINE ( season) 2025 INFLUENZA VACCINE (#1) 2025 Respiratory Syncytial Virus (RSV) Vaccine Pt: or over 60 yrs (1 - 1-dose 75+ series) 2028 HEPATITIS C SCREENING Completed 07/05/2022 HEPATITIS B VACCINE Aged Out No longe r eligible based on patient's age to complete this topic HIB VACCINE Aged Out No longer eligi ble based on patient's age to complete this topic HPV VACCINE Aged Out No longer eligi ble based on patient's age to complete this topic MENINGOCOCCAL (Group B) VACCINE SHARED DECISION-MAKING Aged Out No longer eligible based on patient's age to complete this topic MENINGOCOCCAL GROUPS A/C/Y/W VACCINE Aged Out No longer eligible based on patient's age to complete this topic Procedures Procedure Name Priority Date/Time Associated Diagnosis Comments BASIC METABOLIC PANEL (CALCIUM TOTAL) AM Draw 07/17/2022 5:36 AM AIRPLANE ENGINEER PROTEIN CREATININE RATIO URINE RANDOM PNL Routine 07/07/2022 5:45 AM AIRPLANE ENGINEER HEPATITIS C AB SCREEN RFLX NAAT QUANT STAT 07/05/2022 9:48 AM AIRPLANE ENGINEER HEMOGLOBIN A1C CESAR 07/05/2022 6:54 AM AIRPLANE ENGINEER from Last 3 Months or Most Recently Relevant to Health Maintenance Results * (ABNORMAL) BASIC METABOLIC PANEL (CALCIUM TOTAL) (07/17/2022 5:36 AM AIRPLANE ENGINEER) BUN 17 7 - 26 mg/dL 07/17/2022 6:53 AM AIRPLANE ENGINEER [facility] Creatinine 1.66(H) 0.71 - 1.16 mg/dL 07/17/2022 6:53 AM [facility] Sodium 130(L) 136 - 145 mmol/L 07/17/2022 6:53 AM [facility] Potassium 3.9 3.5 - 4.5 mmol/L 07/17/2022 6:53 AM [facility] Chloride 97(L) 98 - 107 mmol/L 07/17/2022 6:53 AM [facility] CO2 22 22 - 29 mmol/L 07/17/2022 6:53 AM [facility] Glucose 139(H) 70 - 115 mg/dL 07/17/2022 6:53 AM [facility] Calcium 9.5 8.4 - 10.2 mg/dL 07/17/2022 6:53 AM [facility] Anion Gap 15 8 - 18 07/17/2022 6:53 AM [facility] BUN/Creatinine Ratio 10 7 - 23 07/17/2022 6:53 AM [facility] Osmolality Calculated 274 270 - 300 mOsm/kg 07/17/2022 6:53 AM [facility] eGFR by CKD-EPI 45(L) >=90 mL/min/1.7 3 m2 07/17/2022 6:53 AM [facility] Blood BLOOD SPECIMEN / Unknown Lab Venipuncture / Unknown 07/17/2022 5:36 AM AIRPLANE ENGINEER 07/17/2022 6:26 AM [facility] us Nathan Ambrosio MD LAB - CHEMISTRY ORDERABLES F inal Result [facility] [address] [place] [id number] [phone] * (ABNORMAL) PROTEIN CREATININE RATIO URINE RANDOM PNL (07/07/2022 5:45 AM [facility]) Protein Urine 28 Not Established mg/dL 07/07/2022 6:09 AM [facility] Creatinine Urine 118 Not Established mg/dL 07/07/2022 6:09 AM [facility] Protein/Creati nine Ratio Urine 0.24(H) <0.10 07/07/2022 6:09 AM [facility] Urine URINE SPECIMEN OBTAINED BY CLEAN CATCH PROCEDURE / Unknown Collection / Unknown 07/07/2022 5:45 AM AIRPLANE ENGINEER 07/07/2022 5:49 AM AIRPLANE ENGINEER Otilio Goodwin MD LAB - URINE CHEMISTRY ORDERABLE S Final Result Performing Organization Address [facility] de Phone Number [address] [address], [facility] [phone] * HEPATITIS C AB SCREEN RFLX NAAT QUANT (07/05/2022 9:48 AM AIRPLANE ENGINEER) Pathologist [facility] Hepatitis C Antibody Non-react marychuy Non-reac tive 07/05/2022 11:10 AM [facility] Comment:Hepatitis C Antibody screen indicates no serologic evidence of past or current infection with Hepatitis C Virus. Patients with unexplained liver disease who are immunocompromised or suspected of having acute Hepatitis C infection may benefit from Nucleic Acid Test (NANCY) for Hepatitis C Viral RNA to confirm Hepatitis C status. Blood BLOOD SPECIMEN / Unknown Venipuncture / Unknown 07/05/2022 9:48 AM AIRPLANE ENGINEER 07/05/2022 10:25 AM AIRPLANE ENGINEER Mary Shrestha PA-C LAB - CHEMISTRY ORDERABLES Final Result Performing Organization Address [facility] Co de Phone Number [address] [address], [facility] [phone] * (ABNORMAL) HEMOGLOBIN A1C (07/05/2022 6:54 AM AIRPLANE ENGINEER) Pathologist [facility] Hemoglobin A1c 6.8(H) <=5.6 % 07/05/2022 11:47 AM [facility] Estimated Average Glucose 148 mg/dL 07/05/2022 11:47 AM [facility] Comment: HbA1c Interpretation: Normal : < 5.7% Pre-diabetes: 5.7-6.4% Diabetes: Equal to or greater than 6.5% Test results diagnostic of diabetes should be repeated for confirmation. Treatment target values recommended by ADA and other clinical organizations should be used to evaluate metabolic control in patients. Reference: [place] [employer], Standards of Care in Diabetes -2020 In patients 70 years and older consider HbA1c target range of 7.0-7.5% (Reference: Hank Elkins et al. JAMDA. 2012) The Sebia assay for the measurement of HbA1c is a National Glycohemoglobin Standardization Program (NGSP) certified method. Blood BLOOD SPECIMEN / Unknown Venipuncture / Unknown 07/05/2022 6:54 AM AIRPLANE ENGINEER 07/05/2022 7:50 AM AIRPLANE ENGINEER us Kerry Frederick MD LAB - CHEMISTRY ORDERABLES F inal Result [id number] [place] [address], [facility] [phone] from Last 3 Months or Most Recently Relevant to Health Maintenance Insurance MEDICARE [facility] MEDICARE [facility] Advance Directives * Full Code (Latest Code Status on File) Date Activated Date Inactivated Comments 07/04/2022 9:25 PM 07/18/2022 7:01 PM Care Teams Field Hauler Relationship Specialty Start Date End Date Torrey Coley MD [facility] [place] [address] PCP - General 07/18/22
--- OUTSIDE RECORDS SUMMARY | 2025-02-18 07:48 | XMS_ITS | Encounter Summary ---
Author Organization [facility] Address [address] [place] [address] Care Team Providers Care Ash Conveyor Operator Name Role Phone Marcelo Bowden MD Primary Care Provider [phone] Encounter Details Date Type Department Care Team (Late st Contact Info) Description 10/06/2004 Outpatient Historical HIS [facility] Jose David Garza MD [address] [place] [address] HYPERLIPIDEMIA NEC/NOS (Primary Dx) Social History Tobacco Use Types Packs/Day Years Used Date Smoking Tobacco: Never Assessed Sex and Gender Information Value Date Recorded Sex Assigned at Not on file Legal Sex Male 4:41 AM HUMANE AGENT Gender Identity Not on file Sexual Orientation Not on file documented as of this encounter Plan of Treatment Not on file documented as of this encounter Procedures Procedure Name Priority Date/Time Associated Diagnosis Comments PT AND APTT Routine 10/06/2004 11:29 AM CDT CBC WITH DIFFERENTIAL Routine 10/06/2004 11:29 AM CDT CBC WITH DIFFERENTIAL Routine 10/06/2004 11:29 AM CDT BASIC METABOLIC PANEL Routine 10/06/2004 11:29 AM CDT documented in this encounter Results * (ABNORMAL) CBC WITH DIFFERENTIAL (10/06/2004 11:29 AM CDT) NEUTROPHILS 67 45 - 70 % INTERFAC E SYSTEM LYMPHOCYTES 23 16 - 45 % INTERFAC E SYSTEM MONOCYTES 7 3 - 13 % INTERFACE SYSTEM EOSINOPHILS 3 0 - 7 % INTERFAC E SYSTEM BASOPHILS 1 0 - 2 % INTERFACE SYSTEM NEUTROPHIL ABSOLUTE 7.14(H) 1.90 - 7.00 K/uL INTERFACE SYSTEM LYMPHOCYTE ABSOLUTE 2.42 0.70 - 4.50 K/uL INTERFACE SYSTEM MONOCYTE ABSOLUTE 0.69 0.10 - 1.30 K/uL INTERFACE SYSTEM EOSINOPHIL ABSOLUTE 0.35 0.00 - 0.70 K/uL INTERFACE SYSTEM BASOPHILS ABSOLUTE 0.06 0.00 - 0.20 K/uL INTERFACE SYSTEM 10/06/2004 11:2 9 AM CDT Jose David Cordon MD HEMATOLOGY ORDERABLES F inal Result Performing Organization Address [facility] Phone Number INTERFACE SYSTEM Refer to clinic/hospital department * (ABNORMAL) CBC WITH DIFFERENTIAL (10/06/2004 11:29 AM CDT) WBC 10.7(H) 4.0 - 9.8 K/uL INTERFACE SYSTEM RBC 5.17 4.50 - 5.40 M/uL INTERFACE SYSTEM HEMOGLOBIN 16.6(H) 13.6 - 16.5 g/dL INTERFACE SYSTEM HEMATOCRIT 49.5(H) 40.0 - 48.0 % INTERFACE SYSTEM MCV 95.7 82.0 - 99.0 fL INTERFACE SYSTEM MCH 32.1 27.2 - 32.6 pg INTERFACE SYSTEM MCHC 33.5 31.5 - 35.5 % INTERFACE SYSTEM RDW 12.7 11.5 - 14.5 % INTERFACE SYSTEM RDW-STDEV 44.0 37.1 - 48.7 fL INTERFACE SYSTEM PLATELETS 310 140 - 350 K/uL INTERFACE SYSTEM MPV 10.0 9.3 - 12.4 fL INTERFACE SYSTEM 10/06/2004 11:2 9 AM CDT Jose David Cordon MD HEMATOLOGY ORDERABLES F inal Result Performing Organization Address [facility] de Phone Number INTERFACE SYSTEM Refer to clinic/hospital department * PT AND APTT (10/06/2004 11:29 AM CDT) PROTIME 13.1 12.9 - 15.7 Seconds INTERFACE SYSTEM INR 0.9 0.9 - 1.1 INTERFACE SYSTEM Comment: INR Therapeutic Range: Adult: 2.0 - 3.0 for pulmonary embolism or prophylaxis against venous thrombosis or systemic embolization. 2.0 - 3.0 for patients with tissue heart valves. 2.5 - 3.5 for patients with mechanical heart valves or post [place]. Pediatric (12 years and under): 1.5 - 3.0 Although the target range in children is not well established , INR values of 1.5 - 3.0 are recommended for most patients. Higher values have been used in children with prosthetic cardiac valves and hereditary clotting disorders. (<3 days) therapeutic ranges have not been established. Revised 09/13/04 PTT 29.0 25.0 - 35.0 Seconds INTERFACE SYSTEM Comment: PTT Therapeutic Range: Heparin Level PTT (seconds) <0.10 units/mL <45 0.10 - 0.30 units/mL 45 - 65 0.30 - 0.70 units/mL* 65 - 106* 0.70 - 1.00 units/mL 106 - 137 *corresponds to therapeutic range for unfractionated heparin 10/06/2004 11:2 9 AM CDT Jose David Cordon MD HEMATOLOGY ORDERABLES F inal Result INTERFACE SYSTEM Refer to clinic/hospital department * (ABNORMAL) BASIC METABOLIC PANEL (10/06/2004 11:29 AM CDT) GLUCOSE 127(H) 65 - 109 mg/dL INTERFACE SYSTEM CREATININE 1.3 0.5 - 1.3 mg/dL INTERFACE SYSTEM CALCIUM 9.8 8.6 - 10.2 mg/dL INTERFACE SYSTEM BUN 15 6 - 20 mg/dL INTERFACE SYSTEM SODIUM 135 135 - 145 mmol/L INTERFACE SYSTEM POTASSIUM 4.1 3.5 - 4.9 mmol/L INTERFACE SYSTEM CHLORIDE 95(L) 96 - 108 mmol/L INTERFACE SYSTEM CO2 28 22 - 30 mmol/L INTERFACE SYSTEM 10/06/2004 11:2 9 AM CDT Jose David Cordon MD CHEMISTRY ORDERABLES Fi nal Result INTERFACE SYSTEM Refer to clinic/hospital department documented in this encounter Visit Diagnoses Diagnosis Other and unspecified hyperlipidemia- Primary documented in this encounter Care Teams Ash Conveyor Operator Relationship Specialty Start Date End Date Marcelo Bowden MD [address] [place] [address] PCP - General Family Practice 12/11/20 documented as of this encounter
--- OUTSIDE RECORDS SUMMARY | 2025-02-18 07:48 | XMS_ITS | Encounter Summary ---
Author Organization [facility] Address [address] [place] [address] Care Team Providers Care Camera Engineer Name Role Phone Marcelo Bowden MD Primary Care Provider [phone] Encounter Details Date Type Department Care Team (Late st Contact Info) Description 12/17/2020 Chart Note Marcelo [facility] Radiation Therapy [address] [place] [address] [place] [address] [place] [address] Social History Tobacco Use Types Packs/Day Years Used Date Smoking Tobacco: Some Days Cigars Smokeless Tobacco: Never Alcohol Use Standard Drinks/Week Comments Yes 0 (1 standard drink = 0.6 oz pur e alcohol) Sex and Gender Information Value Date Recorded Sex Assigned at Not on file Legal Sex Male 4:41 AM MIGRATION AGENT Gender Identity Not on file Sexual Orientation Not on file COVID-19 Exposure Response Date Recorded In the last month, have you been in contact with someone who was confirmed or suspected to have Coronavirus / COVID-19? No / Unsure 12/11/2020 1:28 PM CDT documented as of this encounter Plan of Treatment Not on file documented as of this encounter Visit Diagnoses Not on filedocumented in this encounter Care Teams Camera Engineer Relationship Specialty Start Date End Date Marcelo Bowden MD [address] [place] [id number] PCP - General Family Practice 12/11/20 documented as of this encounter
--- OUTSIDE RECORDS SUMMARY | 2025-02-18 07:48 | XMS_ITS | Encounter Summary ---
Author Organization [facility] Address [address] [place] [address] Care Team Providers Care Web Ui Software Engineer Name Role Phone Marcelo Bowden MD Primary Care Provider [phone] Torrey Coley MD Primary Care Provider [phone] Encounter Details Date Type Department Care Team (Late st Contact Info) Description 07/08/2022 Ophth Exam [facility] [address] [place] [id number] Shahbaz Brown MD [address] [facility] [address] [place] [id number] Social History Tobacco Use Types Packs/Day [...] and heating? Not hard at all 07/07/2022 [facility] Occupat ional Health - Occupational Stress [...] place to sleep or slept in a [facility] (including now)? No 07/07/2022 Sex and Gender [...] on filedocumented in this encounter Care Teams Web Ui Software Engineer Relationship Specialty Start Date End Date Marcelo Bowden MD [address] [place] [address] PCP - General Family Medicine 07/07/22 07/17/22 Torrey Coley MD [address] [place] [address] PCP - General 07/18/22 documented as of this encounter
[2025-02-18 08:11] LABS: Hematocrit 37.2 % (42.0-52.0); Hemoglobin 12.1 g/dL (14.0-18.0); Immature Granulocyte Percent A 0.5 % (0-0.5); Lymphocytes Absolute Auto 3.12 K/mm3 (0.9-3.2); Mean Corpuscular HGB Conc 32.5 g/dl (32-36); Mean Corpuscular Hemoglobin 31.1 pg (26-34); Mean Corpuscular Volume 95.6 fl (80-100); Nucleated Red Blood Cells Absolute Auto 0.000 K/mm3 (0.0-0.012); Nucleated Red Blood Cells Perc 0.0 % (0.0-0.2); Platelet Count Result 343 k/mm3 (150-375); Red Blood Count 3.89 M/mm3 (4.6-6.20); White Blood Count 10.6 K/mm3 (4.5-10.0)
[2025-02-18 08:20] LABS: Add Urine Microscopic? YES; Appearance Urine Clear (Clear); Glucose Urine UA Negative (Negative); Leukocyte Esterase Ur Negative LEU/UL (Negative); Nitrate Urine Negative (Negative); Non Pathogenic Casts 0-2; Specific Grav Ur 1.019 (1.001-1.035)
[2025-02-18 08:23] LABS: Alanine Aminotransferase 23 U/L (6-50); Albumin Level 4.3 g/dL (3.5-5.1); Alkaline Phosphatase 71 U/L (38-126); Anion Gap 4 mmol/L (4-12); Aspartate Amino Transferase 27 U/L (17-59); Bilirubin,Total 0.5 mg/dL (0.2-1.3); Blood Urea Nitrogen 36 mg/dL (9-20); Calcium 9.8 mg/dL (8.4-10.2); Carbon Dioxide 27 mmol/L (22-30); Chloride 101 mmol/L (98-107); Cholesterol 121 mg/dL (0-200); Estimated Glomerular Filt Rate 28; Glucose 158 mg/dL (65-110); HDL Direct 76 mg/dL; Potassium 4.2 mmol/L (3.4-5.0); Sodium 132 mmol/L (137-145); Total Protein 7.4 g/dL (6.3-8.2); Triglycerides 57 mg/dL (<150)
[2025-02-18 08:39] LABS: Hemoglobin A1C 7.0 % (<5.7)
[2025-02-18 08:59] LABS: Prostate Specific Antigen 0.8 ng/mL (< OR = 4.0); Thyroid Stimulating Hormone 3.260 uIU/mL (0.465-4.680)
== END 2025-02-18 07:39 | disposition home or self-care (01) ==
LOC: ANHLAB 07:45
PROVIDERS: PCP Family Medicine; Visit Provider Family Medicine
DX: E11.22 Type 2 diabetes mellitus with diabetic chronic kidney disease (principal); I12.9 Hypertensive chronic kidney disease with stage 1 through stage 4 chronic kidney disease, or unspecified chronic kidney disease; N18.9 Chronic kidney disease, unspecified; E78.5 Hyperlipidemia, unspecified; E55.9 Vitamin D deficiency, unspecified; D64.9 Anemia, unspecified; E87.1 Hypo-osmolality and hyponatremia; C18.9 Malignant neoplasm of colon, unspecified; C64.9 Malignant neoplasm of unspecified kidney, except renal pelvis; F17.200 Nicotine dependence, unspecified, uncomplicated; G70.00 Myasthenia gravis without (acute) exacerbation; I48.91 Unspecified atrial fibrillation; I25.10 Atherosclerotic heart disease of native coronary artery without angina pectoris; R35.1 Nocturia; E66.9 Obesity, unspecified
CPT/HCPCS: 36415; 80053; 80061; 81001; 83036; 84153; 84443; 85025